=== PATIENT | female | born 1955 | race Caucasian/White ===

== ENCOUNTER 2018-10-12 12:16 | Inpatient (IN) | payer MEDICAID, OTHER ==
[2018-10-12 12:35] LABS: WHITE BLOOD COUNT 5.9 10^3/ul (4.8-10.8)
[2018-10-12 12:35] LABS: ABNORMAL IP MESSAGE 1; ADD MAN DIFF? NO; BASOPHILS % 0.5 % (0.0-2.0); HEMATOCRIT 21.7 % (37.0-47.0); LYMPHOCYTES # 0.9 10^3/ul (0.8-2.9); LYMPHOCYTES % 15.4 % (15.0-51.0); MEAN CORPUSCULAR HEMOGLOBIN 23.4 pg (29.0-33.0); MEAN CORPUSCULAR HGB CONC 28.1 g/dl (32.0-37.0); MEAN CORPUSCULAR VOLUME 83.1 fl (82.0-101.0); MEAN PLATELET VOLUME 8.5 fl (7.4-10.4); MONOCYTE # 0.5 10^3/ul (0.3-0.9); MONOCYTES % 8.9 % (0.0-11.0); NEUTROPHIL # 4.4 10^3/ul (1.6-7.5); PLATELET COUNT 203 10^3/UL (140-415); RED BLOOD COUNT 2.61 10^6/ul (4.20-5.40); RED CELL DISTRIBUTION WIDTH 22.2 % (11.5-14.5)
[2018-10-12 12:36] LABS: POSITIVE DIFF @See below
[2018-10-12 12:38] LABS: HEMOGLOBIN 6.1 g/dl (12.0-16.0)
[2018-10-12 12:39] LABS: PATH REVIEW? NO
[2018-10-12 12:52] LABS: ALANINE AMINOTRANSFERASE 13 IU/L (13-69); ALBUMIN 2.7 g/dl (3.3-4.9); ALBUMIN/GLOBULIN RATIO 0.69; ALKALINE PHOSPHATASE 139 IU/L (42-121); ANION GAP 10 (5-13); ASPARTATE AMINO TRANSFERASE 22 IU/L (15-46); BILIRUBIN,INDIRECT 0.7 mg/dl (0-1.1); BILIRUBIN,TOTAL 0.7 mg/dl (0.2-1.3); BLOOD UREA NITROGEN 19 mg/dl (7-20); CALCIUM 8.2 mg/dl (8.4-10.2); CARBON DIOXIDE 23 mmol/L (21-31); CHLORIDE 104 mmol/L (97-110); CREATININE 0.76 mg/dl (0.44-1.00); Estimated GFR > 60 mL/min (>60); GLUCOSE 161 mg/dl (70-220); POTASSIUM 3.4 mmol/L (3.5-5.1); SODIUM 137 mmol/L (135-144); TOTAL PROTEIN 6.6 g/dl (6.1-8.1)
[2018-10-12 12:53] LABS: ETHANOL < 10.0 mg/dl (0-0)
[2018-10-12 12:53] LABS: INR 1.26; PROTIME 15.9 Sec (11.9-14.9); PT RATIO 1.2
[2018-10-12 12:54] LABS: PARTIAL THROMBOPLASTIN TIME 29.1 Sec (23.0-35.0)
[2018-10-12 13:01] LABS: B-TYPE NATRIURETIC PEPTIDE 415 PG/ML (0-125)
[2018-10-12 13:05] LABS: TROPONIN-I < 0.012 ng/ml (0.000-0.120)
[2018-10-12 13:43] LABS: AMPHETAMINE/METHAMPHETAMINE Negative (NEGATIVE); BARBITURATES Negative (NEGATIVE); BENZODIAZEPINES Negative (NEGATIVE); CANNABINOIDS Negative (NEGATIVE); COCAINE Negative (NEGATIVE); OPIATES Negative (NEGATIVE)
[2018-10-12] MEDS ORDERED: NACL 0.9% 3 ML SYG IV (14:00)
[2018-10-12] MEDS ORDERED: hydrALAzine 20 MG INJ IV (14:00)
[2018-10-12] MEDS ORDERED: NITROGLYCERIN (SL) 0.4 MG TAB SL (14:00)
[2018-10-12] MEDS ORDERED: ALBUTEROL/IPRATROPIUM (NEB) 3 ML AMP HHN (14:00)
[2018-10-12 14:37] LABS: INR 1.27; PT RATIO 1.3
[2018-10-12 14:38] LABS: PARTIAL THROMBOPLASTIN TIME 28.1 Sec (23.0-35.0)
[2018-10-12 14:54] LABS: FREE T4 (FREE THYROXINE) 2.25 ng/dl (0.78-2.44)
[2018-10-12] MEDS: ONDANSETRON 4 MG INJ IV (14:55)
[2018-10-12] MEDS: morphine 2 MG INJ IV ×2 (14:55→20:07)
[2018-10-12 15:02] LABS: CREATINE KINASE 59 IU/L (23-200)
[2018-10-12 15:15] LABS: CK INDEX 1.3; CK-MB 0.79 ng/ml (0.0-2.4); TROPONIN-I < 0.012 ng/ml (0.000-0.120)
[2018-10-12] MEDS ORDERED: GLUCOSE GEL 15 GRAM TUBE PO ×2 (17:00)
[2018-10-12] MEDS ORDERED: GLUCOSE GEL 15 GRAM TUBE BUCCAL (17:00)
[2018-10-12] MEDS ORDERED: GLUCAGON 1 MG INJ IM (17:00)
[2018-10-12] MEDS ORDERED: DEXTROSE 50% 50 ML SYRINGE IV ×2 (17:00)
[2018-10-12 17:08] LABS: IMMEDIATE SPIN CROSSMATCH 1 2
[2018-10-12] MEDS: INSULIN ASPART [NOVOLOG] 3 ML PEN SC ×2 (17:30→20:59)
[2018-10-12] MEDS: HYDROCODONE/APAP (5/325) TAB PO (18:10)
[2018-10-12] MEDS: FAMOTIDINE 20 MG INJ IV ×2 (18:26→23:12)
[2018-10-12] MEDS: SOD CHLORIDE 0.45% 1,000 ML IV (20:06)
[2018-10-12] MEDS: POTASSIUM CHLORIDE (SR) 20 MEQ TAB PO (20:07)
[2018-10-12 20:38] LABS: CREATINE KINASE 68 IU/L (23-200)
[2018-10-12 20:51] LABS: CK INDEX 1.2; CK-MB 0.84 ng/ml (0.0-2.4); TROPONIN-I < 0.012 ng/ml (0.000-0.120)
[2018-10-12] MEDS: SOD CHLORIDE 0.9% 100 ML (21:18)
[2018-10-12] MEDS: IOHEXOL 100 ML (21:18)
[2018-10-13 00:54] LABS: ADD MAN DIFF? NO
[2018-10-13 00:57] LABS: HEMATOCRIT 28.1 % (37.0-47.0); HEMOGLOBIN 8.4 g/dl (12.0-16.0); LYMPHOCYTES # 0.9 10^3/ul (0.8-2.9); LYMPHOCYTES % 20.8 % (15.0-51.0); MEAN CORPUSCULAR HGB CONC 29.9 g/dl (32.0-37.0); MEAN CORPUSCULAR VOLUME 83.6 fl (82.0-101.0); MEAN PLATELET VOLUME 8.5 fl (7.4-10.4); MONOCYTE # 0.4 10^3/ul (0.3-0.9); MONOCYTES % 8.6 % (0.0-11.0); NEUTROPHIL # 2.8 10^3/ul (1.6-7.5); NEUTROPHILS % 68.4 % (39.0-77.0); PLATELET COUNT 152 10^3/UL (140-415); RED BLOOD COUNT 3.36 10^6/ul (4.20-5.40); RED CELL DISTRIBUTION WIDTH 19.4 % (11.5-14.5)
[2018-10-13 00:57] LABS: WHITE BLOOD COUNT 4.1 10^3/ul (4.8-10.8)
[2018-10-13] MEDS: INSULIN ASPART [NOVOLOG] 3 ML PEN SC ×5 (01:00→20:03)
[2018-10-13 01:20] LABS: INR 1.27; PT RATIO 1.3
[2018-10-13 01:21] LABS: PARTIAL THROMBOPLASTIN TIME 34.1 Sec (23.0-35.0)
[2018-10-13] MEDS: ACCU-CHEK XX (01:44)
[2018-10-13] MEDS: HYDROCODONE/APAP (5/325) TAB PO ×2 (02:09→10:49)
[2018-10-13] MEDS: HEPARIN 1000 UNITS/ML 10 ML INJ IV (02:27)
[2018-10-13] MEDS: HEPARIN 25000 UNITS/250 ML 250 ML IV ×2 (02:27→14:46)
[2018-10-13] MEDS: SOD CHLORIDE 0.45% 1,000 ML IV ×2 (03:16→10:51)
[2018-10-13] MEDS: morphine 2 MG INJ IV ×6 (03:53→23:38)
[2018-10-13 06:08] LABS: ADD MAN DIFF? NO
[2018-10-13 06:21] LABS: WHITE BLOOD COUNT 4.7 10^3/ul (4.8-10.8)
[2018-10-13 06:21] LABS: BASOPHILS % 0.6 % (0.0-2.0); EOSINOPHILS # 0.1 10^3/ul (0.0-0.5); EOSINOPHILS % 2.6 % (0.0-7.0); HEMATOCRIT 28.1 % (37.0-47.0); HEMOGLOBIN 8.3 g/dl (12.0-16.0); LYMPHOCYTES % 21.5 % (15.0-51.0); MEAN CORPUSCULAR HEMOGLOBIN 24.7 pg (29.0-33.0); MEAN CORPUSCULAR HGB CONC 29.5 g/dl (32.0-37.0); MEAN CORPUSCULAR VOLUME 83.6 fl (82.0-101.0); MEAN PLATELET VOLUME 8.4 fl (7.4-10.4); MONOCYTE # 0.4 10^3/ul (0.3-0.9); MONOCYTES % 8.6 % (0.0-11.0); NEUTROPHIL # 3.1 10^3/ul (1.6-7.5); NEUTROPHILS % 66.5 % (39.0-77.0); PLATELET COUNT 170 10^3/UL (140-415); RED BLOOD COUNT 3.36 10^6/ul (4.20-5.40); RED CELL DISTRIBUTION WIDTH 19.6 % (11.5-14.5)
[2018-10-13 06:29] LABS: INR 1.64; PT RATIO 1.5
[2018-10-13 06:42] LABS: CHOL/HDL RATIO 6.2 RATIO; HDL CHOLESTEROL 24 mg/dl (35-98); LDL CHOLESTEROL,CALCULATED 107 mg/dl; TRIGLYCERIDES 92 mg/dl (0-149)
[2018-10-13 06:42] LABS: CHOLESTEROL 149 mg/dl (100-200)
[2018-10-13 06:59] LABS: ANION GAP 7 (5-13); BLOOD UREA NITROGEN 17 mg/dl (7-20); CALCIUM 8.1 mg/dl (8.4-10.2); CARBON DIOXIDE 25 mmol/L (21-31); CHLORIDE 104 mmol/L (97-110); Estimated GFR > 60 mL/min (>60); GLUCOSE 108 mg/dl (70-220); POTASSIUM 3.7 mmol/L (3.5-5.1); SODIUM 136 mmol/L (135-144)
[2018-10-13 07:05] LABS: HEMOGLOBIN A1C 5.6 % (0-5.9)
[2018-10-13 07:29] LABS: PARTIAL THROMBOPLASTIN TIME > 180.0 Sec (23.0-35.0)
[2018-10-13 07:47] LABS: PROTIME 19.5 Sec (11.9-14.9)
[2018-10-13] MEDS: FLUOXETINE 20 MG CAP PO (08:30)
[2018-10-13] MEDS: FAMOTIDINE 20 MG INJ IV ×2 (08:30→20:04)
[2018-10-13] MEDS: HYDROCHLOROTHIAZIDE 25 MG TAB PO (08:30)
[2018-10-13] MEDS: LISINOPRIL 20 MG TAB PO (08:31)
[2018-10-13 11:23] LABS: ADD MAN DIFF? NO
[2018-10-13 11:25] LABS: WHITE BLOOD COUNT 4.5 10^3/ul (4.8-10.8)
[2018-10-13 11:25] LABS: BASOPHILS % 0.7 % (0.0-2.0); EOSINOPHILS # 0.1 10^3/ul (0.0-0.5); EOSINOPHILS % 2.7 % (0.0-7.0); HEMOGLOBIN 8.3 g/dl (12.0-16.0); LYMPHOCYTES # 1.2 10^3/ul (0.8-2.9); LYMPHOCYTES % 27.2 % (15.0-51.0); MEAN CORPUSCULAR HGB CONC 29.6 g/dl (32.0-37.0); MEAN CORPUSCULAR VOLUME 84.3 fl (82.0-101.0); MEAN PLATELET VOLUME 8.4 fl (7.4-10.4); MONOCYTE # 0.4 10^3/ul (0.3-0.9); MONOCYTES % 9.2 % (0.0-11.0); NEUTROPHIL # 2.7 10^3/ul (1.6-7.5); PLATELET COUNT 165 10^3/UL (140-415); RED BLOOD COUNT 3.32 10^6/ul (4.20-5.40); RED CELL DISTRIBUTION WIDTH 19.7 % (11.5-14.5)
[2018-10-13] MEDS: BISACODYL (EC) 5 MG TAB PO (12:05)
[2018-10-13] MEDS: FUROSEMIDE 40 MG TAB PO (12:05)
[2018-10-13 12:36] LABS: PARTIAL THROMBOPLASTIN TIME > 180.0 Sec (23.0-35.0)
[2018-10-13 13:16] LABS: ADD MAN DIFF? NO
[2018-10-13 13:17] LABS: BASOPHIL # 0.1 10^3/ul (0.0-0.1); BASOPHILS % 1.1 % (0.0-2.0); EOSINOPHILS # 0.1 10^3/ul (0.0-0.5); EOSINOPHILS % 1.8 % (0.0-7.0); HEMATOCRIT 28.8 % (37.0-47.0); HEMOGLOBIN 8.6 g/dl (12.0-16.0); LYMPHOCYTES # 1.1 10^3/ul (0.8-2.9); LYMPHOCYTES % 24.8 % (15.0-51.0); MEAN CORPUSCULAR HEMOGLOBIN 25.1 pg (29.0-33.0); MEAN CORPUSCULAR HGB CONC 29.9 g/dl (32.0-37.0); MEAN CORPUSCULAR VOLUME 84.2 fl (82.0-101.0); MEAN PLATELET VOLUME 8.4 fl (7.4-10.4); MONOCYTE # 0.4 10^3/ul (0.3-0.9); MONOCYTES % 9.5 % (0.0-11.0); NEUTROPHIL # 2.8 10^3/ul (1.6-7.5); NEUTROPHILS % 62.6 % (39.0-77.0); PLATELET COUNT 174 10^3/UL (140-415); RED BLOOD COUNT 3.42 10^6/ul (4.20-5.40); RED CELL DISTRIBUTION WIDTH 19.8 % (11.5-14.5)
[2018-10-13 13:17] LABS: WHITE BLOOD COUNT 4.5 10^3/ul (4.8-10.8)
[2018-10-13 13:22] LABS: HEPATITIS B CORE ANTIBODY NEGATIVE (NEGATIVE)
[2018-10-13 13:23] LABS: HEPATITIS C VIRAL ANTIBODY NEGATIVE (NEGATIVE)
[2018-10-13 17:29] LABS: HEPATITIS B SURFACE ANTIGEN NEGATIVE (NEGATIVE)
[2018-10-13] MEDS ORDERED: MAGNESIUM CITRATE 300 ML BTL PO (17:30)
[2018-10-13 17:44] LABS: HEPATITIS B SURFACE ANTIBODY NEGATIVE (NEGATIVE)
[2018-10-13] MEDS ORDERED: POLYETHYLENE GLYCOL 3350 119 GM POWDER PO (18:30)
[2018-10-13] MEDS: SPIRONOLACTONE 25 MG TAB PO (18:43)
[2018-10-13] MEDS: DOCUSATE SODIUM 100 MG CAP PO (18:43)
[2018-10-13] MEDS: HYDROCODONE/APAP (7.5/325) TAB PO (18:44)
[2018-10-13] MEDS: SOD CHLORIDE 0.9% 1,000 ML IV (20:36)
[2018-10-13] MEDS ORDERED: Insulin NOVOLOG SS MILD Algorithm (SS with meals and bedtime) SC (21:00)
[2018-10-13] MEDS ORDERED: INSULIN ASPART [NOVOLOG] 3 ML PEN SC (21:00)
[2018-10-13 22:36] LABS: ADD MAN DIFF? NO
[2018-10-13 22:40] LABS: WHITE BLOOD COUNT 5.4 10^3/ul (4.8-10.8)
[2018-10-13 22:40] LABS: ABNORMAL IP MESSAGE 1; BASOPHIL # 0.1 10^3/ul (0.0-0.1); BASOPHILS % 1.1 % (0.0-2.0); EOSINOPHILS # 0.1 10^3/ul (0.0-0.5); EOSINOPHILS % 1.7 % (0.0-7.0); HEMATOCRIT 28.9 % (37.0-47.0); HEMOGLOBIN 8.3 g/dl (12.0-16.0); LYMPHOCYTES # 1.3 10^3/ul (0.8-2.9); LYMPHOCYTES % 24.3 % (15.0-51.0); MEAN CORPUSCULAR HEMOGLOBIN 24.3 pg (29.0-33.0); MEAN CORPUSCULAR HGB CONC 28.7 g/dl (32.0-37.0); MEAN CORPUSCULAR VOLUME 84.8 fl (82.0-101.0); MEAN PLATELET VOLUME 8.5 fl (7.4-10.4); MONOCYTE # 0.5 10^3/ul (0.3-0.9); MONOCYTES % 8.7 % (0.0-11.0); NEUTROPHIL # 3.4 10^3/ul (1.6-7.5); PLATELET COUNT 203 10^3/UL (140-415); RED BLOOD COUNT 3.41 10^6/ul (4.20-5.40); RED CELL DISTRIBUTION WIDTH 19.9 % (11.5-14.5)
[2018-10-13 22:42] LABS: POSITIVE DIFF @See below
[2018-10-13 23:22] LABS: PARTIAL THROMBOPLASTIN TIME > 180.0 Sec (23.0-35.0)
[2018-10-13] MEDS: ONDANSETRON 4 MG INJ IV (23:46)
[2018-10-14] MEDS: HYDROCODONE/APAP (7.5/325) TAB PO (00:41)
[2018-10-14] MEDS: LORAZEPAM 2 MG INJ IV (01:03)
[2018-10-14] MEDS: INSULIN ASPART [NOVOLOG] 3 ML PEN SC ×6 (01:12→20:20)
[2018-10-14] MEDS: ACCU-CHEK XX (01:36)
[2018-10-14 01:37] LABS: PARTIAL THROMBOPLASTIN TIME > 180.0 Sec (23.0-35.0)
[2018-10-14 03:00] LABS: ADD MAN DIFF? NO
[2018-10-14 03:04] LABS: BASOPHIL # 0.1 10^3/ul (0.0-0.1); EOSINOPHILS # 0.1 10^3/ul (0.0-0.5); EOSINOPHILS % 1.8 % (0.0-7.0); HEMATOCRIT 26.1 % (37.0-47.0); HEMOGLOBIN 7.7 g/dl (12.0-16.0); LYMPHOCYTES # 1.2 10^3/ul (0.8-2.9); LYMPHOCYTES % 24.6 % (15.0-51.0); MEAN CORPUSCULAR HEMOGLOBIN 24.8 pg (29.0-33.0); MEAN CORPUSCULAR HGB CONC 29.5 g/dl (32.0-37.0); MEAN CORPUSCULAR VOLUME 83.9 fl (82.0-101.0); MEAN PLATELET VOLUME 8.6 fl (7.4-10.4); MONOCYTE # 0.6 10^3/ul (0.3-0.9); MONOCYTES % 11.7 % (0.0-11.0); NEUTROPHILS % 60.7 % (39.0-77.0); PLATELET COUNT 186 10^3/UL (140-415); RED BLOOD COUNT 3.11 10^6/ul (4.20-5.40); RED CELL DISTRIBUTION WIDTH 19.8 % (11.5-14.5)
[2018-10-14 03:41] LABS: ANION GAP 11 (5-13); BLOOD UREA NITROGEN 19 mg/dl (7-20); CALCIUM 7.7 mg/dl (8.4-10.2); CARBON DIOXIDE 23 mmol/L (21-31); CHLORIDE 103 mmol/L (97-110); CREATININE 1.08 mg/dl (0.44-1.00); Estimated GFR 51 mL/min (>60); GLUCOSE 136 mg/dl (70-220); POTASSIUM 3.5 mmol/L (3.5-5.1); SODIUM 137 mmol/L (135-144)
[2018-10-14] MEDS: SPIRONOLACTONE 25 MG TAB PO ×2 (05:23→18:00)
[2018-10-14] MEDS ORDERED: POLYETHYLENE GLYCOL 3350 119 GM POWDER PO (06:00)
[2018-10-14] MEDS ORDERED: BISACODYL (EC) 5 MG TAB PO (08:00)
[2018-10-14] MEDS: FUROSEMIDE 40 MG TAB PO (08:42)
[2018-10-14] MEDS: FLUOXETINE 20 MG CAP PO (08:43)
[2018-10-14] MEDS: FAMOTIDINE 20 MG INJ IV ×2 (08:48→20:20)
[2018-10-14 09:05] LABS: PARTIAL THROMBOPLASTIN TIME 42.1 Sec (23.0-35.0)
[2018-10-14 11:57] LABS: ANA SCREEN NEGATIVE (NEGATIVE)
[2018-10-14 13:31] LABS: MITOCHONDRIAL TB NEGATIVE (NEGATIVE); SMOOTH MUSCLE AB SCREEN NEGATIVE (NEGATIVE)
[2018-10-14] MEDS: HEPARIN 1000 UNITS/ML 10 ML INJ IV (15:31)
[2018-10-14] MEDS: HEPARIN 25000 UNITS/250 ML 250 ML IV (15:35)
[2018-10-14] MEDS: morphine 2 MG INJ IV (22:09)
[2018-10-14 22:36] LABS: PARTIAL THROMBOPLASTIN TIME > 180.0 Sec (23.0-35.0)
[2018-10-15] MEDS: ACCU-CHEK XX (02:00)
[2018-10-15 03:54] LABS: PARTIAL THROMBOPLASTIN TIME 52.8 Sec (23.0-35.0)
[2018-10-15] MEDS: SPIRONOLACTONE 25 MG TAB PO (05:40)
[2018-10-15] MEDS: FUROSEMIDE 20 MG TAB PO (05:41)
[2018-10-15 05:57] LABS: ADD MAN DIFF? NO; BASOPHIL # 0.1 10^3/ul (0.0-0.1); BASOPHILS % 1.2 % (0.0-2.0); EOSINOPHILS # 0.1 10^3/ul (0.0-0.5); HEMATOCRIT 28.5 % (37.0-47.0); HEMOGLOBIN 8.3 g/dl (12.0-16.0); LYMPHOCYTES # 1.3 10^3/ul (0.8-2.9); LYMPHOCYTES % 25.6 % (15.0-51.0); MEAN CORPUSCULAR HEMOGLOBIN 24.6 pg (29.0-33.0); MEAN CORPUSCULAR HGB CONC 29.1 g/dl (32.0-37.0); MEAN CORPUSCULAR VOLUME 84.3 fl (82.0-101.0); MEAN PLATELET VOLUME 8.4 fl (7.4-10.4); MONOCYTE # 0.6 10^3/ul (0.3-0.9); MONOCYTES % 11.1 % (0.0-11.0); NEUTROPHILS % 59.9 % (39.0-77.0); PLATELET COUNT 215 10^3/UL (140-415); RED BLOOD COUNT 3.38 10^6/ul (4.20-5.40); RED CELL DISTRIBUTION WIDTH 20.5 % (11.5-14.5)
[2018-10-15 06:48] LABS: ANION GAP 8 (5-13); BLOOD UREA NITROGEN 22 mg/dl (7-20); CALCIUM 8.1 mg/dl (8.4-10.2); CARBON DIOXIDE 25 mmol/L (21-31); CHLORIDE 101 mmol/L (97-110); CREATININE 1.66 mg/dl (0.44-1.00); Estimated GFR 31 mL/min (>60); GLUCOSE 136 mg/dl (70-220); SODIUM 134 mmol/L (135-144)
[2018-10-15] MEDS: INSULIN ASPART [NOVOLOG] 3 ML PEN SC ×4 (08:12→22:40)
[2018-10-15] MEDS: FAMOTIDINE 20 MG INJ IV ×2 (09:02→22:17)
[2018-10-15] MEDS: FLUOXETINE 20 MG CAP PO (09:03)
[2018-10-15 09:08] LABS: PARTIAL THROMBOPLASTIN TIME 130.5 Sec (23.0-35.0)
[2018-10-15] MEDS: LIDOCAINE 1% (MPF) 5 ML VIAL ×2 (14:10→14:32)
[2018-10-15 15:41] LABS: FLD RBC 0 /uL; FLD WBC 25 /cmm
[2018-10-15 15:54] LABS: FLUID LD 217 U/L; FLUID TYPE PARACENTESIS FLUID
[2018-10-15 15:55] LABS: FLUID AMYLASE < 30 U/L; FLUID GLUCOSE 127 mg/dl; FLUID TOTAL PROTEIN < 2.0 g/dl; FLUID TYPE PARACENTESIS FLUID
[2018-10-15 15:58] LABS: PARTIAL THROMBOPLASTIN TIME 127.4 Sec (23.0-35.0)
[2018-10-15] MEDS: HEPARIN 25000 UNITS/250 ML 250 ML IV (16:06)
[2018-10-15 16:41] LABS: FLD CLARITY CLEAR
[2018-10-15 16:41] LABS: FLD TYPE PARACENTHESIS
[2018-10-15 16:42] LABS: FLD COLOR YELLOW
[2018-10-15] MEDS: MAGNESIUM HYDROXIDE 30ML CUP PO (18:08)
[2018-10-15] MEDS: DOCUSATE SODIUM 100 MG CAP PO (22:17)
[2018-10-15 22:25] LABS: PARTIAL THROMBOPLASTIN TIME 58.7 Sec (23.0-35.0)
[2018-10-15] MEDS: ACETAMINOPHEN 325 MG TAB PO (22:34)
[2018-10-16] MEDS: ACCU-CHEK XX (01:59)
[2018-10-16] MEDS: ACETAMINOPHEN 325 MG TAB PO (05:31)
[2018-10-16 05:42] LABS: ADD MAN DIFF? NO
[2018-10-16 05:50] LABS: BASOPHILS % 0.6 % (0.0-2.0); EOSINOPHILS # 0.1 10^3/ul (0.0-0.5); EOSINOPHILS % 2.4 % (0.0-7.0); HEMATOCRIT 26.4 % (37.0-47.0); HEMOGLOBIN 7.9 g/dl (12.0-16.0); LYMPHOCYTES # 1.1 10^3/ul (0.8-2.9); LYMPHOCYTES % 32.6 % (15.0-51.0); MEAN CORPUSCULAR HEMOGLOBIN 24.8 pg (29.0-33.0); MEAN CORPUSCULAR HGB CONC 29.9 g/dl (32.0-37.0); MEAN PLATELET VOLUME 8.3 fl (7.4-10.4); MONOCYTE # 0.4 10^3/ul (0.3-0.9); MONOCYTES % 12.2 % (0.0-11.0); NEUTROPHIL # 1.8 10^3/ul (1.6-7.5); NEUTROPHILS % 52.2 % (39.0-77.0); PLATELET COUNT 152 10^3/UL (140-415); RED BLOOD COUNT 3.18 10^6/ul (4.20-5.40); RED CELL DISTRIBUTION WIDTH 20.4 % (11.5-14.5)
[2018-10-16 05:50] LABS: WHITE BLOOD COUNT 3.4 10^3/ul (4.8-10.8)
[2018-10-16 06:23] LABS: ANION GAP 4 (5-13); BLOOD UREA NITROGEN 22 mg/dl (7-20); CALCIUM 7.9 mg/dl (8.4-10.2); CARBON DIOXIDE 26 mmol/L (21-31); CHLORIDE 104 mmol/L (97-110); CREATININE 1.53 mg/dl (0.44-1.00); Estimated GFR 34 mL/min (>60); GLUCOSE 113 mg/dl (70-220); SODIUM 134 mmol/L (135-144)
[2018-10-16 06:42] LABS: PARTIAL THROMBOPLASTIN TIME 107.8 Sec (23.0-35.0)
[2018-10-16] MEDS: HEPARIN 25000 UNITS/250 ML 250 ML IV ×3 (07:20→15:34)
[2018-10-16] MEDS: INSULIN ASPART [NOVOLOG] 3 ML PEN SC ×4 (08:00→20:37)
[2018-10-16] MEDS: FLUOXETINE 20 MG CAP PO (09:20)
[2018-10-16] MEDS: FAMOTIDINE 20 MG INJ IV ×2 (09:21→20:37)
[2018-10-16] MEDS: HYDROCODONE/APAP (7.5/325) TAB PO (09:26)
[2018-10-16 14:49] LABS: PARTIAL THROMBOPLASTIN TIME 30.5 Sec (23.0-35.0)
[2018-10-16] MEDS: HEPARIN 1000 UNITS/ML 10 ML INJ IV (15:29)
[2018-10-16 23:13] LABS: PARTIAL THROMBOPLASTIN TIME > 180.0 Sec (23.0-35.0)
[2018-10-17] MEDS: ACCU-CHEK XX (02:00)
[2018-10-17 03:54] LABS: ADD MAN DIFF? NO
[2018-10-17 04:23] LABS: WHITE BLOOD COUNT 3.6 10^3/ul (4.8-10.8)
[2018-10-17 04:23] LABS: BASOPHILS % 0.8 % (0.0-2.0); EOSINOPHILS # 0.1 10^3/ul (0.0-0.5); EOSINOPHILS % 2.3 % (0.0-7.0); HEMATOCRIT 25.4 % (37.0-47.0); HEMOGLOBIN 7.8 g/dl (12.0-16.0); LYMPHOCYTES # 0.9 10^3/ul (0.8-2.9); LYMPHOCYTES % 24.2 % (15.0-51.0); MEAN CORPUSCULAR HEMOGLOBIN 25.2 pg (29.0-33.0); MEAN CORPUSCULAR HGB CONC 30.7 g/dl (32.0-37.0); MEAN CORPUSCULAR VOLUME 82.2 fl (82.0-101.0); MEAN PLATELET VOLUME 8.7 fl (7.4-10.4); MONOCYTE # 0.4 10^3/ul (0.3-0.9); MONOCYTES % 12.1 % (0.0-11.0); NEUTROPHIL # 2.1 10^3/ul (1.6-7.5); NEUTROPHILS % 60.3 % (39.0-77.0); PLATELET COUNT 163 10^3/UL (140-415); RED BLOOD COUNT 3.09 10^6/ul (4.20-5.40); RED CELL DISTRIBUTION WIDTH 20.6 % (11.5-14.5)
[2018-10-17] MEDS: ONDANSETRON 4 MG INJ IV (04:32)
[2018-10-17 04:34] LABS: PARTIAL THROMBOPLASTIN TIME 85.3 Sec (23.0-35.0)
[2018-10-17] MEDS: HEPARIN 25000 UNITS/250 ML 250 ML IV (04:45)
[2018-10-17 04:56] LABS: ANION GAP 7 (5-13); BLOOD UREA NITROGEN 20 mg/dl (7-20); CARBON DIOXIDE 26 mmol/L (21-31); CHLORIDE 103 mmol/L (97-110); CREATININE 1.23 mg/dl (0.44-1.00); Estimated GFR 44 mL/min (>60); GLUCOSE 117 mg/dl (70-220); POTASSIUM 4.1 mmol/L (3.5-5.1); SODIUM 136 mmol/L (135-144)
[2018-10-17] MEDS: HYDROCODONE/APAP (7.5/325) TAB PO ×2 (06:19→19:59)
[2018-10-17] MEDS: INSULIN ASPART [NOVOLOG] 3 ML PEN SC ×4 (07:53→20:09)
[2018-10-17] MEDS: FAMOTIDINE 20 MG INJ IV ×2 (08:47→19:59)
[2018-10-17] MEDS: FLUOXETINE 20 MG CAP PO (08:51)
[2018-10-17 12:48] LABS: PARTIAL THROMBOPLASTIN TIME 77.7 Sec (23.0-35.0)
[2018-10-18] MEDS: HYDROCODONE/APAP (7.5/325) TAB PO (01:29)
[2018-10-18] MEDS: ACCU-CHEK XX (01:31)
[2018-10-18] MEDS: morphine 2 MG INJ IV ×4 (02:21→16:19)
[2018-10-18 05:19] LABS: ADD MAN DIFF? NO
[2018-10-18 05:26] LABS: WHITE BLOOD COUNT 4.3 10^3/ul (4.8-10.8)
[2018-10-18 05:26] LABS: BASOPHILS % 0.7 % (0.0-2.0); EOSINOPHILS # 0.1 10^3/ul (0.0-0.5); EOSINOPHILS % 1.9 % (0.0-7.0); HEMATOCRIT 25.6 % (37.0-47.0); HEMOGLOBIN 7.7 g/dl (12.0-16.0); LYMPHOCYTES # 1.1 10^3/ul (0.8-2.9); LYMPHOCYTES % 25.2 % (15.0-51.0); MEAN CORPUSCULAR HEMOGLOBIN 24.8 pg (29.0-33.0); MEAN CORPUSCULAR HGB CONC 30.1 g/dl (32.0-37.0); MEAN CORPUSCULAR VOLUME 82.6 fl (82.0-101.0); MEAN PLATELET VOLUME 8.2 fl (7.4-10.4); MONOCYTE # 0.5 10^3/ul (0.3-0.9); MONOCYTES % 11.4 % (0.0-11.0); NEUTROPHIL # 2.6 10^3/ul (1.6-7.5); NEUTROPHILS % 60.6 % (39.0-77.0); PLATELET COUNT 161 10^3/UL (140-415); RED CELL DISTRIBUTION WIDTH 21.2 % (11.5-14.5)
[2018-10-18 05:57] LABS: ANION GAP 6 (5-13); BLOOD UREA NITROGEN 20 mg/dl (7-20); CALCIUM 7.9 mg/dl (8.4-10.2); CARBON DIOXIDE 26 mmol/L (21-31); CHLORIDE 103 mmol/L (97-110); CREATININE 0.97 mg/dl (0.44-1.00); Estimated GFR 58 mL/min (>60); GLUCOSE 136 mg/dl (70-220); POTASSIUM 3.7 mmol/L (3.5-5.1); SODIUM 135 mmol/L (135-144)
[2018-10-18 06:07] LABS: INR 1.17; PT RATIO 1.2
[2018-10-18 07:40] LABS: PARTIAL THROMBOPLASTIN TIME 116.4 Sec (23.0-35.0)
[2018-10-18] MEDS: INSULIN ASPART [NOVOLOG] 3 ML PEN SC ×4 (07:46→22:38)
[2018-10-18] MEDS: FLUOXETINE 20 MG CAP PO (08:08)
[2018-10-18] MEDS: FAMOTIDINE 20 MG INJ IV ×2 (08:08→22:17)
[2018-10-18] MEDS: HEPARIN 25000 UNITS/250 ML 250 ML IV ×3 (10:30→18:29)
[2018-10-18 16:48] LABS: PARTIAL THROMBOPLASTIN TIME 45.8 Sec (23.0-35.0)
[2018-10-18] MEDS: HEPARIN 1000 UNITS/ML 10 ML INJ IV (18:29)
[2018-10-19 01:32] LABS: PARTIAL THROMBOPLASTIN TIME > 180.0 Sec (23.0-35.0)
[2018-10-19] MEDS: ACCU-CHEK XX (02:48)
[2018-10-19] MEDS: morphine 2 MG INJ IV ×4 (03:50→22:34)
[2018-10-19 04:25] LABS: PARTIAL THROMBOPLASTIN TIME > 180.0 Sec (23.0-35.0)
[2018-10-19 06:37] LABS: ADD MAN DIFF? NO
[2018-10-19 06:44] LABS: WHITE BLOOD COUNT 4.1 10^3/ul (4.8-10.8)
[2018-10-19 06:44] LABS: EOSINOPHILS # 0.1 10^3/ul (0.0-0.5); EOSINOPHILS % 2.9 % (0.0-7.0); HEMATOCRIT 25.4 % (37.0-47.0); HEMOGLOBIN 7.7 g/dl (12.0-16.0); LYMPHOCYTES # 1.2 10^3/ul (0.8-2.9); LYMPHOCYTES % 29.4 % (15.0-51.0); MEAN CORPUSCULAR HEMOGLOBIN 25.2 pg (29.0-33.0); MEAN CORPUSCULAR HGB CONC 30.3 g/dl (32.0-37.0); MEAN CORPUSCULAR VOLUME 83.3 fl (82.0-101.0); MEAN PLATELET VOLUME 8.3 fl (7.4-10.4); MONOCYTE # 0.4 10^3/ul (0.3-0.9); MONOCYTES % 10.2 % (0.0-11.0); NEUTROPHIL # 2.3 10^3/ul (1.6-7.5); NEUTROPHILS % 56.3 % (39.0-77.0); PLATELET COUNT 153 10^3/UL (140-415); RED BLOOD COUNT 3.05 10^6/ul (4.20-5.40); RED CELL DISTRIBUTION WIDTH 21.5 % (11.5-14.5)
[2018-10-19 07:10] LABS: ANION GAP 4 (5-13); BLOOD UREA NITROGEN 18 mg/dl (7-20); CALCIUM 7.8 mg/dl (8.4-10.2); CARBON DIOXIDE 27 mmol/L (21-31); CHLORIDE 104 mmol/L (97-110); Estimated GFR > 60 mL/min (>60); GLUCOSE 120 mg/dl (70-220); SODIUM 135 mmol/L (135-144)
[2018-10-19 07:24] LABS: POTASSIUM 4.3 mmol/L (3.5-5.1)
[2018-10-19 07:32] LABS: PARTIAL THROMBOPLASTIN TIME 152.5 Sec (23.0-35.0)
[2018-10-19] MEDS: INSULIN ASPART [NOVOLOG] 3 ML PEN SC ×4 (07:48→21:49)
[2018-10-19] MEDS: FLUOXETINE 20 MG CAP PO (08:46)
[2018-10-19] MEDS: FAMOTIDINE 20 MG INJ IV ×2 (08:46→21:30)
[2018-10-19 09:22] LABS: PARTIAL THROMBOPLASTIN TIME 56.4 Sec (23.0-35.0)
[2018-10-19] MEDS: HEPARIN 25000 UNITS/250 ML 250 ML IV (10:13)
[2018-10-19] MEDS: BISACODYL (EC) 5 MG TAB PO (15:58)
[2018-10-19 16:17] LABS: PARTIAL THROMBOPLASTIN TIME 76.2 Sec (23.0-35.0)
[2018-10-19] MEDS: MAGNESIUM CITRATE 300 ML BTL PO (18:23)
[2018-10-19] MEDS: POLYETHYLENE GLYCOL 3350 119 GM POWDER PO (19:10)
[2018-10-19 20:41] LABS: PARTIAL THROMBOPLASTIN TIME 70.6 Sec (23.0-35.0)
[2018-10-20] MEDS: ACCU-CHEK XX (02:08)
[2018-10-20 03:09] LABS: PARTIAL THROMBOPLASTIN TIME 74.2 Sec (23.0-35.0)
[2018-10-20] MEDS: POLYETHYLENE GLYCOL 3350 119 GM POWDER PO (05:12)
[2018-10-20 06:10] LABS: ADD MAN DIFF? NO
[2018-10-20] MEDS: morphine 2 MG INJ IV ×3 (06:12→20:46)
[2018-10-20 06:14] LABS: ABNORMAL IP MESSAGE 1; BASOPHILS % 0.5 % (0.0-2.0); EOSINOPHILS % 0.2 % (0.0-7.0); HEMATOCRIT 30.1 % (37.0-47.0); HEMOGLOBIN 8.7 g/dl (12.0-16.0); LYMPHOCYTES # 0.9 10^3/ul (0.8-2.9); LYMPHOCYTES % 21.6 % (15.0-51.0); MEAN CORPUSCULAR HEMOGLOBIN 24.5 pg (29.0-33.0); MEAN CORPUSCULAR HGB CONC 28.9 g/dl (32.0-37.0); MEAN CORPUSCULAR VOLUME 84.8 fl (82.0-101.0); MEAN PLATELET VOLUME 8.7 fl (7.4-10.4); MONOCYTE # 0.4 10^3/ul (0.3-0.9); MONOCYTES % 8.7 % (0.0-11.0); NEUTROPHIL # 2.8 10^3/ul (1.6-7.5); NEUTROPHILS % 68.8 % (39.0-77.0); PLATELET COUNT 164 10^3/UL (140-415); RED BLOOD COUNT 3.55 10^6/ul (4.20-5.40); RED CELL DISTRIBUTION WIDTH 21.9 % (11.5-14.5)
[2018-10-20 06:23] LABS: POSITIVE DIFF @See below
[2018-10-20 06:33] LABS: INR 1.15; PROTIME 14.8 Sec (11.9-14.9); PT RATIO 1.2
[2018-10-20 06:47] LABS: ANION GAP 5 (5-13); BLOOD UREA NITROGEN 17 mg/dl (7-20); CALCIUM 8.2 mg/dl (8.4-10.2); CARBON DIOXIDE 28 mmol/L (21-31); CHLORIDE 104 mmol/L (97-110); CREATININE 0.67 mg/dl (0.44-1.00); Estimated GFR > 60 mL/min (>60); GLUCOSE 146 mg/dl (70-220); POTASSIUM 4.5 mmol/L (3.5-5.1); SODIUM 137 mmol/L (135-144)
[2018-10-20] MEDS: INSULIN ASPART [NOVOLOG] 3 ML PEN SC ×4 (08:00→20:58)
[2018-10-20] MEDS: FAMOTIDINE 20 MG INJ IV ×2 (08:13→20:45)
[2018-10-20] MEDS: BISACODYL (EC) 5 MG TAB PO (08:13)
[2018-10-20] MEDS: FLUOXETINE 20 MG CAP PO (08:14)
[2018-10-20] MEDS ORDERED: EPHEDrine 25 MG/5 ML SYG IV (19:30)
[2018-10-20] MEDS ORDERED: OXYCODONE/ACETAMINOPHEN (5/325) TAB PO (19:30)
[2018-10-20] MEDS ORDERED: hydrALAzine 20 MG INJ IV (19:30)
[2018-10-20] MEDS ORDERED: HYDROmorphONE 1 MG/5 ML IV SYRINGE IV (19:30)
[2018-10-20] MEDS ORDERED: LABETALOL HCL 20MG INJ IV (19:30)
[2018-10-20] MEDS ORDERED: METOCLOPRAMIDE 10 MG INJ IV (19:30)
[2018-10-20] MEDS ORDERED: ONDANSETRON 4 MG INJ IV (19:30)
[2018-10-20] MEDS ORDERED: FENTAnyl 50 MCG/ML VIAL IV (19:30)
[2018-10-20] MEDS: MESALAMINE (SR) 250 MG CAP PO (20:45)
[2018-10-20 21:28] LABS: INR 1.13; PROTIME 14.6 Sec (11.9-14.9); PT RATIO 1.1
[2018-10-20] MEDS: HEPARIN 25000 UNITS/250 ML 250 ML IV (22:32)
[2018-10-20] MEDS: HEPARIN 1000 UNITS/ML 10 ML INJ IV (22:32)
[2018-10-21] MEDS: morphine 2 MG INJ IV ×7 (00:50→22:57)
[2018-10-21] MEDS: ACCU-CHEK XX (01:37)
[2018-10-21 06:55] LABS: PARTIAL THROMBOPLASTIN TIME 78.2 Sec (23.0-35.0)
[2018-10-21] MEDS: MESALAMINE (SR) 250 MG CAP PO ×4 (08:06→20:13)
[2018-10-21] MEDS: FAMOTIDINE 20 MG INJ IV ×2 (08:06→20:13)
[2018-10-21] MEDS: FLUOXETINE 20 MG CAP PO (08:06)
[2018-10-21] MEDS: INSULIN ASPART [NOVOLOG] 3 ML PEN SC ×4 (08:12→20:11)
[2018-10-21 08:44] LABS: ADD MAN DIFF? NO
[2018-10-21 08:47] LABS: WHITE BLOOD COUNT 4.9 10^3/ul (4.8-10.8)
[2018-10-21 08:47] LABS: ABNORMAL IP MESSAGE 1; BASOPHILS % 0.4 % (0.0-2.0); EOSINOPHILS # 0.1 10^3/ul (0.0-0.5); EOSINOPHILS % 1.8 % (0.0-7.0); HEMOGLOBIN 8.7 g/dl (12.0-16.0); LYMPHOCYTES # 0.8 10^3/ul (0.8-2.9); LYMPHOCYTES % 16.5 % (15.0-51.0); MEAN CORPUSCULAR HEMOGLOBIN 25.3 pg (29.0-33.0); MEAN CORPUSCULAR VOLUME 87.2 fl (82.0-101.0); MEAN PLATELET VOLUME 8.8 fl (7.4-10.4); MONOCYTE # 0.5 10^3/ul (0.3-0.9); MONOCYTES % 9.6 % (0.0-11.0); NEUTROPHIL # 3.5 10^3/ul (1.6-7.5); NEUTROPHILS % 71.5 % (39.0-77.0); PLATELET COUNT 173 10^3/UL (140-415); RED BLOOD COUNT 3.44 10^6/ul (4.20-5.40); RED CELL DISTRIBUTION WIDTH 22.3 % (11.5-14.5)
[2018-10-21 08:50] LABS: POSITIVE DIFF @See below
[2018-10-21 11:36] LABS: PARTIAL THROMBOPLASTIN TIME 78.1 Sec (23.0-35.0)
[2018-10-21] MEDS: APIXABAN 5 MG TABLET PO ×2 (12:15→20:13)
[2018-10-21] MEDS: SPIRONOLACTONE 25 MG TAB PO (17:40)
[2018-10-21] MEDS: FUROSEMIDE 20 MG INJ IV (17:43)
[2018-10-22] MEDS: ACCU-CHEK XX (01:48)
[2018-10-22] MEDS: morphine 2 MG INJ IV ×3 (04:36→17:17)
[2018-10-22] MEDS: FUROSEMIDE 20 MG INJ IV ×2 (05:51→17:17)
[2018-10-22] MEDS: SPIRONOLACTONE 25 MG TAB PO ×2 (05:51→17:18)
[2018-10-22 06:19] LABS: ADD MAN DIFF? NO
[2018-10-22 06:25] LABS: ABNORMAL IP MESSAGE 1; BASOPHILS % 0.8 % (0.0-2.0); EOSINOPHILS # 0.2 10^3/ul (0.0-0.5); EOSINOPHILS % 3.1 % (0.0-7.0); HEMATOCRIT 26.7 % (37.0-47.0); HEMOGLOBIN 8.2 g/dl (12.0-16.0); LYMPHOCYTES # 1.3 10^3/ul (0.8-2.9); LYMPHOCYTES % 26.5 % (15.0-51.0); MEAN CORPUSCULAR HEMOGLOBIN 25.7 pg (29.0-33.0); MEAN CORPUSCULAR HGB CONC 30.7 g/dl (32.0-37.0); MEAN CORPUSCULAR VOLUME 83.7 fl (82.0-101.0); MEAN PLATELET VOLUME 8.6 fl (7.4-10.4); MONOCYTE # 0.6 10^3/ul (0.3-0.9); MONOCYTES % 11.9 % (0.0-11.0); NEUTROPHIL # 2.8 10^3/ul (1.6-7.5); NEUTROPHILS % 57.5 % (39.0-77.0); PLATELET COUNT 190 10^3/UL (140-415); RED BLOOD COUNT 3.19 10^6/ul (4.20-5.40); RED CELL DISTRIBUTION WIDTH 22.5 % (11.5-14.5)
[2018-10-22 06:25] LABS: WHITE BLOOD COUNT 4.8 10^3/ul (4.8-10.8)
[2018-10-22 06:57] LABS: POSITIVE DIFF @See below
[2018-10-22 07:29] LABS: ANION GAP 8 (5-13); BLOOD UREA NITROGEN 18 mg/dl (7-20); CALCIUM 8.2 mg/dl (8.4-10.2); CARBON DIOXIDE 25 mmol/L (21-31); CHLORIDE 102 mmol/L (97-110); CREATININE 0.66 mg/dl (0.44-1.00); Estimated GFR > 60 mL/min (>60); GLUCOSE 139 mg/dl (70-220); PHOSPHORUS 2.7 mg/dl (2.5-4.9); SODIUM 135 mmol/L (135-144)
[2018-10-22] MEDS: INSULIN ASPART [NOVOLOG] 3 ML PEN SC ×4 (07:50→20:54)
[2018-10-22] MEDS: FLUOXETINE 20 MG CAP PO (08:42)
[2018-10-22] MEDS: MESALAMINE (SR) 250 MG CAP PO ×4 (08:42→20:24)
[2018-10-22] MEDS: APIXABAN 5 MG TABLET PO ×2 (08:42→20:24)
[2018-10-22] MEDS: FAMOTIDINE 20 MG INJ IV ×2 (08:42→20:24)
[2018-10-22] MEDS: PROPRANOLOL 10 MG TAB PO (08:43)
[2018-10-23] MEDS: morphine 2 MG INJ IV ×5 (01:34→18:32)
[2018-10-23] MEDS: ACCU-CHEK XX (01:40)
[2018-10-23] MEDS: FUROSEMIDE 20 MG INJ IV ×2 (05:37→17:26)
[2018-10-23] MEDS: SPIRONOLACTONE 25 MG TAB PO ×2 (05:37→17:26)
[2018-10-23 06:05] LABS: ADD MAN DIFF? NO
[2018-10-23 06:12] LABS: ABNORMAL IP MESSAGE 1; BASOPHILS % 0.8 % (0.0-2.0); EOSINOPHILS # 0.2 10^3/ul (0.0-0.5); EOSINOPHILS % 3.8 % (0.0-7.0); HEMATOCRIT 27.7 % (37.0-47.0); HEMOGLOBIN 8.4 g/dl (12.0-16.0); LYMPHOCYTES # 1.1 10^3/ul (0.8-2.9); LYMPHOCYTES % 23.3 % (15.0-51.0); MEAN CORPUSCULAR HEMOGLOBIN 25.3 pg (29.0-33.0); MEAN CORPUSCULAR HGB CONC 30.3 g/dl (32.0-37.0); MEAN CORPUSCULAR VOLUME 83.4 fl (82.0-101.0); MEAN PLATELET VOLUME 8.3 fl (7.4-10.4); MONOCYTE # 0.5 10^3/ul (0.3-0.9); MONOCYTES % 10.8 % (0.0-11.0); NEUTROPHIL # 2.9 10^3/ul (1.6-7.5); NEUTROPHILS % 61.1 % (39.0-77.0); PLATELET COUNT 185 10^3/UL (140-415); RED BLOOD COUNT 3.32 10^6/ul (4.20-5.40); RED CELL DISTRIBUTION WIDTH 22.5 % (11.5-14.5)
[2018-10-23 06:12] LABS: WHITE BLOOD COUNT 4.7 10^3/ul (4.8-10.8)
[2018-10-23 06:30] LABS: POSITIVE DIFF @See below
[2018-10-23 06:31] LABS: INR 1.66; PROTIME 19.7 Sec (11.9-14.9); PT RATIO 1.5
[2018-10-23 06:36] LABS: ANION GAP 8 (5-13); BLOOD UREA NITROGEN 19 mg/dl (7-20); CALCIUM 8.1 mg/dl (8.4-10.2); CARBON DIOXIDE 27 mmol/L (21-31); CHLORIDE 99 mmol/L (97-110); CREATININE 0.71 mg/dl (0.44-1.00); Estimated GFR > 60 mL/min (>60); GLUCOSE 163 mg/dl (70-220); PHOSPHORUS 2.9 mg/dl (2.5-4.9); POTASSIUM 3.9 mmol/L (3.5-5.1); SODIUM 134 mmol/L (135-144)
[2018-10-23] MEDS: FAMOTIDINE 20 MG INJ IV ×2 (08:28→20:24)
[2018-10-23] MEDS: MESALAMINE (SR) 250 MG CAP PO ×4 (08:28→20:24)
[2018-10-23] MEDS: APIXABAN 5 MG TABLET PO ×2 (08:28→20:24)
[2018-10-23] MEDS: FLUOXETINE 20 MG CAP PO (08:28)
[2018-10-23] MEDS: PROPRANOLOL 10 MG TAB PO (08:29)
[2018-10-23] MEDS: HYDROCODONE/APAP (7.5/325) TAB PO (08:33)
[2018-10-23] MEDS: INSULIN ASPART [NOVOLOG] 3 ML PEN SC ×4 (08:48→20:49)
[2018-10-23] MEDS: PETROLATUM 28.35 GM JELLY TOP ×2 (16:04→21:02)
[2018-10-24] MEDS: ACCU-CHEK XX (01:42)
[2018-10-24] MEDS: SPIRONOLACTONE 25 MG TAB PO ×2 (05:26→17:59)
[2018-10-24] MEDS: FUROSEMIDE 20 MG INJ IV ×2 (05:26→17:59)
[2018-10-24] MEDS: morphine 2 MG INJ IV ×3 (05:32→15:50)
[2018-10-24 06:15] LABS: ADD MAN DIFF? NO
[2018-10-24 06:18] LABS: WHITE BLOOD COUNT 4.5 10^3/ul (4.8-10.8)
[2018-10-24 06:18] LABS: ABNORMAL IP MESSAGE 1; BASOPHILS % 0.7 % (0.0-2.0); EOSINOPHILS # 0.2 10^3/ul (0.0-0.5); EOSINOPHILS % 3.4 % (0.0-7.0); HEMATOCRIT 25.2 % (37.0-47.0); HEMOGLOBIN 7.8 g/dl (12.0-16.0); LYMPHOCYTES # 1.1 10^3/ul (0.8-2.9); LYMPHOCYTES % 24.5 % (15.0-51.0); MEAN CORPUSCULAR HEMOGLOBIN 26.2 pg (29.0-33.0); MEAN CORPUSCULAR VOLUME 84.6 fl (82.0-101.0); MEAN PLATELET VOLUME 8.9 fl (7.4-10.4); MONOCYTE # 0.5 10^3/ul (0.3-0.9); NEUTROPHIL # 2.7 10^3/ul (1.6-7.5); NEUTROPHILS % 60.2 % (39.0-77.0); PLATELET COUNT 190 10^3/UL (140-415); RED BLOOD COUNT 2.98 10^6/ul (4.20-5.40); RED CELL DISTRIBUTION WIDTH 22.1 % (11.5-14.5)
[2018-10-24 06:26] LABS: POSITIVE DIFF @See below
[2018-10-24 06:58] LABS: ANION GAP 7 (5-13); BLOOD UREA NITROGEN 23 mg/dl (7-20); CALCIUM 7.8 mg/dl (8.4-10.2); CARBON DIOXIDE 28 mmol/L (21-31); CHLORIDE 99 mmol/L (97-110); Estimated GFR > 60 mL/min (>60); GLUCOSE 129 mg/dl (70-220); MAGNESIUM 1.9 mg/dl (1.7-2.5); PHOSPHORUS 3.1 mg/dl (2.5-4.9); POTASSIUM 4.1 mmol/L (3.5-5.1); SODIUM 134 mmol/L (135-144)
[2018-10-24] MEDS: INSULIN ASPART [NOVOLOG] 3 ML PEN SC ×4 (08:31→21:02)
[2018-10-24] MEDS: PROPRANOLOL 10 MG TAB PO (09:00)
[2018-10-24] MEDS: FAMOTIDINE 20 MG INJ IV ×2 (10:03→21:07)
[2018-10-24] MEDS: APIXABAN 5 MG TABLET PO ×2 (10:04→20:55)
[2018-10-24] MEDS: MESALAMINE (SR) 250 MG CAP PO ×4 (10:04→20:55)
[2018-10-24] MEDS: PETROLATUM 28.35 GM JELLY TOP (10:17)
[2018-10-24] MEDS: PROPOFOL 20 ML (12:27)
[2018-10-24 12:30] LABS: FLD MN% 93.9 %; FLD PMN% 6.1 %; FLD RBC 1000 /uL; FLD WBC 33 /cmm
[2018-10-24] MEDS: FLUOXETINE 20 MG CAP PO (12:38)
[2018-10-24] MEDS: HYDROCODONE/APAP (7.5/325) TAB PO (12:47)
[2018-10-24 12:52] LABS: FLUID LD 192 U/L; FLUID TOTAL PROTEIN < 2.0 g/dl; FLUID TYPE PARACENTESIS FLUID
[2018-10-24] MEDS: LIDOCAINE 1% (MPF) 5 ML VIAL (13:00)
[2018-10-24 13:48] LABS: FLD TYPE PARACENTHESIS
[2018-10-24 13:48] LABS: FLD CLARITY HAZY
[2018-10-24 13:49] LABS: FLD COLOR YELLOW
[2018-10-24] MEDS: OXYCODONE/ACETAMINOPHEN (10/325) TAB PO ×2 (18:05→21:59)
[2018-10-25] MEDS: OXYCODONE/ACETAMINOPHEN (10/325) TAB PO ×5 (01:55→22:34)
[2018-10-25] MEDS: ACCU-CHEK XX (01:56)
[2018-10-25 04:57] LABS: ADD MAN DIFF? NO
[2018-10-25 05:04] LABS: WHITE BLOOD COUNT 3.6 10^3/ul (4.8-10.8)
[2018-10-25 05:04] LABS: ABNORMAL IP MESSAGE 1; BASOPHILS % 0.8 % (0.0-2.0); EOSINOPHILS # 0.2 10^3/ul (0.0-0.5); EOSINOPHILS % 4.2 % (0.0-7.0); HEMATOCRIT 23.1 % (37.0-47.0); HEMOGLOBIN 7.3 g/dl (12.0-16.0); LYMPHOCYTES # 1.2 10^3/ul (0.8-2.9); MEAN CORPUSCULAR HEMOGLOBIN 26.4 pg (29.0-33.0); MEAN CORPUSCULAR HGB CONC 31.6 g/dl (32.0-37.0); MEAN CORPUSCULAR VOLUME 83.4 fl (82.0-101.0); MEAN PLATELET VOLUME 8.4 fl (7.4-10.4); MONOCYTE # 0.5 10^3/ul (0.3-0.9); MONOCYTES % 14.5 % (0.0-11.0); NEUTROPHIL # 1.7 10^3/ul (1.6-7.5); NEUTROPHILS % 48.2 % (39.0-77.0); PLATELET COUNT 156 10^3/UL (140-415); RED BLOOD COUNT 2.77 10^6/ul (4.20-5.40); RED CELL DISTRIBUTION WIDTH 22.5 % (11.5-14.5)
[2018-10-25 05:21] LABS: POSITIVE DIFF @See below
[2018-10-25 05:28] LABS: ANION GAP 5 (5-13); BLOOD UREA NITROGEN 24 mg/dl (7-20); CALCIUM 7.5 mg/dl (8.4-10.2); CARBON DIOXIDE 27 mmol/L (21-31); CHLORIDE 101 mmol/L (97-110); CREATININE 0.75 mg/dl (0.44-1.00); Estimated GFR > 60 mL/min (>60); GLUCOSE 138 mg/dl (70-220); MAGNESIUM 1.8 mg/dl (1.7-2.5); PHOSPHORUS 3.2 mg/dl (2.5-4.9); POTASSIUM 3.6 mmol/L (3.5-5.1); SODIUM 133 mmol/L (135-144)
[2018-10-25] MEDS: SPIRONOLACTONE 25 MG TAB PO ×2 (06:16→17:35)
[2018-10-25] MEDS: FUROSEMIDE 20 MG INJ IV ×2 (06:17→17:35)
[2018-10-25] MEDS: PETROLATUM 5 GM OINT TOP ×2 (09:00→20:34)
[2018-10-25] MEDS: INSULIN ASPART [NOVOLOG] 3 ML PEN SC ×4 (09:40→20:33)
[2018-10-25] MEDS: APIXABAN 5 MG TABLET PO ×2 (09:42→20:27)
[2018-10-25] MEDS: MESALAMINE (SR) 250 MG CAP PO ×5 (09:42→20:27)
[2018-10-25] MEDS: FLUOXETINE 20 MG CAP PO (09:42)
[2018-10-25] MEDS: PROPRANOLOL 10 MG TAB PO (09:43)
[2018-10-25] MEDS: FAMOTIDINE 20 MG INJ IV ×2 (09:48→20:26)
[2018-10-26] MEDS: ACCU-CHEK XX (02:17)
[2018-10-26] MEDS: OXYCODONE/ACETAMINOPHEN (10/325) TAB PO ×4 (02:18→18:02)
[2018-10-26 05:17] LABS: ADD MAN DIFF? NO
[2018-10-26 05:24] LABS: ABNORMAL IP MESSAGE 1; BASOPHILS % 1.2 % (0.0-2.0); EOSINOPHILS # 0.2 10^3/ul (0.0-0.5); EOSINOPHILS % 4.4 % (0.0-7.0); HEMATOCRIT 24.8 % (37.0-47.0); HEMOGLOBIN 7.5 g/dl (12.0-16.0); LYMPHOCYTES # 0.8 10^3/ul (0.8-2.9); LYMPHOCYTES % 24.3 % (15.0-51.0); MEAN CORPUSCULAR HEMOGLOBIN 25.4 pg (29.0-33.0); MEAN CORPUSCULAR HGB CONC 30.2 g/dl (32.0-37.0); MEAN CORPUSCULAR VOLUME 84.1 fl (82.0-101.0); MEAN PLATELET VOLUME 8.5 fl (7.4-10.4); MONOCYTE # 0.5 10^3/ul (0.3-0.9); MONOCYTES % 14.9 % (0.0-11.0); NEUTROPHIL # 1.9 10^3/ul (1.6-7.5); NEUTROPHILS % 54.9 % (39.0-77.0); PLATELET COUNT 180 10^3/UL (140-415); RED BLOOD COUNT 2.95 10^6/ul (4.20-5.40); RED CELL DISTRIBUTION WIDTH 22.5 % (11.5-14.5)
[2018-10-26 05:24] LABS: WHITE BLOOD COUNT 3.4 10^3/ul (4.8-10.8)
[2018-10-26 05:53] LABS: POSITIVE DIFF @See below
[2018-10-26 06:22] LABS: ANION GAP 6 (5-13); BLOOD UREA NITROGEN 23 mg/dl (7-20); CALCIUM 7.7 mg/dl (8.4-10.2); CARBON DIOXIDE 29 mmol/L (21-31); CHLORIDE 98 mmol/L (97-110); CREATININE 0.77 mg/dl (0.44-1.00); Estimated GFR > 60 mL/min (>60); GLUCOSE 129 mg/dl (70-220); MAGNESIUM 1.8 mg/dl (1.7-2.5); PHOSPHORUS 3.7 mg/dl (2.5-4.9); SODIUM 133 mmol/L (135-144)
[2018-10-26] MEDS: SPIRONOLACTONE 25 MG TAB PO ×2 (06:50→18:02)
[2018-10-26] MEDS: FUROSEMIDE 20 MG INJ IV ×2 (06:52→18:30)
[2018-10-26] MEDS: INSULIN ASPART [NOVOLOG] 3 ML PEN SC ×4 (07:50→21:09)
[2018-10-26] MEDS: APIXABAN 5 MG TABLET PO ×3 (09:00→21:14)
[2018-10-26] MEDS: MESALAMINE (SR) 250 MG CAP PO ×4 (09:00→23:03)
[2018-10-26] MEDS: FLUOXETINE 20 MG CAP PO ×2 (09:00→11:31)
[2018-10-26] MEDS: PROPRANOLOL 10 MG TAB PO ×2 (09:00→11:32)
[2018-10-26] MEDS: PETROLATUM 5 GM OINT TOP ×2 (09:00→21:00)
[2018-10-26] MEDS: FAMOTIDINE 20 MG INJ IV ×2 (09:59→21:09)
[2018-10-26 13:45] LABS: IRON 24 ug/dl (35-150)
[2018-10-26 13:46] LABS: LACTATE DEHYDROGENASE 541 IU/L (313-618)
[2018-10-26 13:55] LABS: % IRON SATURATION 11 % SAT (22-52); TOTAL IRON BINDING CAPACITY 227 ug/dl (241-421)
[2018-10-26 14:20] LABS: FERRITIN 34.8 ng/ml (11.1-264.0)
[2018-10-26 14:50] LABS: FOLATE 3.4 ng/ml (2.8-20.0)
[2018-10-26] MEDS: SOD FERRIC GLUC COMPLX 125 MG in SOD CHLORIDE 0.9% 100 ML IVPB (18:31)
[2018-10-27] MEDS: ACCU-CHEK XX (02:00)
[2018-10-27 04:56] LABS: ADD MAN DIFF? NO
[2018-10-27 05:01] LABS: ABNORMAL IP MESSAGE 1; BASOPHILS % 0.9 % (0.0-2.0); EOSINOPHILS # 0.1 10^3/ul (0.0-0.5); EOSINOPHILS % 3.5 % (0.0-7.0); HEMATOCRIT 26.1 % (37.0-47.0); HEMOGLOBIN 8.1 g/dl (12.0-16.0); LYMPHOCYTES # 0.8 10^3/ul (0.8-2.9); LYMPHOCYTES % 24.1 % (15.0-51.0); MEAN CORPUSCULAR HEMOGLOBIN 26.1 pg (29.0-33.0); MEAN CORPUSCULAR VOLUME 84.2 fl (82.0-101.0); MEAN PLATELET VOLUME 8.2 fl (7.4-10.4); MONOCYTE # 0.4 10^3/ul (0.3-0.9); MONOCYTES % 12.2 % (0.0-11.0); PLATELET COUNT 189 10^3/UL (140-415); RED CELL DISTRIBUTION WIDTH 22.4 % (11.5-14.5)
[2018-10-27 05:01] LABS: WHITE BLOOD COUNT 3.5 10^3/ul (4.8-10.8)
[2018-10-27 05:11] LABS: POSITIVE DIFF @See below
[2018-10-27 05:16] LABS: ANION GAP 5 (5-13); BLOOD UREA NITROGEN 20 mg/dl (7-20); CALCIUM 7.7 mg/dl (8.4-10.2); CARBON DIOXIDE 31 mmol/L (21-31); CHLORIDE 98 mmol/L (97-110); CREATININE 0.75 mg/dl (0.44-1.00); Estimated GFR > 60 mL/min (>60); GLUCOSE 163 mg/dl (70-220); POTASSIUM 3.6 mmol/L (3.5-5.1); SODIUM 134 mmol/L (135-144)
[2018-10-27 05:48] LABS: PHOSPHORUS 3.4 mg/dl (2.5-4.9)
[2018-10-27 05:48] LABS: MAGNESIUM 1.8 mg/dl (1.7-2.5)
[2018-10-27] MEDS: SPIRONOLACTONE 25 MG TAB PO ×2 (06:07→17:42)
[2018-10-27] MEDS: MAGNESIUM HYDROXIDE 30ML CUP PO (06:07)
[2018-10-27] MEDS: FUROSEMIDE 20 MG INJ IV (06:07)
[2018-10-27] MEDS: INSULIN ASPART [NOVOLOG] 3 ML PEN SC ×4 (08:47→21:04)
[2018-10-27] MEDS: MESALAMINE (SR) 250 MG CAP PO ×4 (08:47→20:58)
[2018-10-27] MEDS: FAMOTIDINE 20 MG INJ IV (08:47)
[2018-10-27] MEDS: APIXABAN 5 MG TABLET PO ×2 (08:48→20:58)
[2018-10-27] MEDS: FLUOXETINE 20 MG CAP PO (08:48)
[2018-10-27] MEDS: PETROLATUM 5 GM OINT TOP ×2 (08:48→20:58)
[2018-10-27] MEDS: PROPRANOLOL 10 MG TAB PO (08:50)
[2018-10-27] MEDS: OXYCODONE/ACETAMINOPHEN (10/325) TAB PO ×3 (08:58→23:08)
[2018-10-27 13:43] LABS: AMMONIA 27 umol/l (9-30)
[2018-10-27 13:55] LABS: TROPONIN-I < 0.012 ng/ml (0.000-0.120)
[2018-10-28] MEDS: ACCU-CHEK XX ×2 (02:00→21:12)
[2018-10-28 04:37] LABS: PROTEIN, TOTAL 5.5 g/dL (6.1-8.1)
[2018-10-28] MEDS: SPIRONOLACTONE 25 MG TAB PO ×2 (05:11→18:53)
[2018-10-28] MEDS: OXYCODONE/ACETAMINOPHEN (10/325) TAB PO ×4 (05:11→20:25)
[2018-10-28] MEDS: INSULIN ASPART [NOVOLOG] 3 ML PEN SC ×4 (07:50→21:00)
[2018-10-28] MEDS: IOHEXOL 14.3 MG(I)/ML (ADULT) BTL PO (08:16)
[2018-10-28] MEDS: PETROLATUM 5 GM OINT TOP ×2 (08:17→20:26)
[2018-10-28] MEDS: MESALAMINE (SR) 250 MG CAP PO ×4 (08:17→20:25)
[2018-10-28] MEDS: PROPRANOLOL 10 MG TAB PO (08:17)
[2018-10-28] MEDS: FLUOXETINE 20 MG CAP PO (08:17)
[2018-10-28] MEDS: FUROSEMIDE 20 MG TAB PO (08:18)
[2018-10-28] MEDS: APIXABAN 5 MG TABLET PO ×2 (11:51→20:24)
[2018-10-28 13:22] LABS: HAPTOGLOBIN 118 mg/dL (43-212)
[2018-10-28 19:42] LABS: ERYTHROPOIETIN 55.7 mIU/mL (2.6-18.5)
[2018-10-28 23:37] LABS: ALBUMIN 1.8 g/dL (3.8-4.8); ALPHA-1-GLOBULINS 0.4 g/dL (0.2-0.3); ALPHA-2-GLOBULINS 0.6 g/dL (0.5-0.9); BETA 2 GLOBULINS 1.1 g/dL (0.2-0.5); BETA GLOBULINS 0.4 g/dL (0.4-0.6); GAMMA GLOBULINS 1.2 g/dL (0.8-1.7)
[2018-10-29] MEDS: OXYCODONE/ACETAMINOPHEN (10/325) TAB PO ×4 (01:06→17:55)
[2018-10-29 05:19] LABS: ALANINE AMINOTRANSFERASE 17 IU/L (13-69); ALBUMIN 2.4 g/dl (3.3-4.9); ALBUMIN/GLOBULIN RATIO 0.66; ALKALINE PHOSPHATASE 185 IU/L (42-121); ANION GAP 6 (5-13); ASPARTATE AMINO TRANSFERASE 40 IU/L (15-46); BILIRUBIN,INDIRECT 0.4 mg/dl (0-1.1); BILIRUBIN,TOTAL 0.4 mg/dl (0.2-1.3); BLOOD UREA NITROGEN 21 mg/dl (7-20); CARBON DIOXIDE 29 mmol/L (21-31); CHLORIDE 97 mmol/L (97-110); Estimated GFR > 60 mL/min (>60); GLUCOSE 168 mg/dl (70-220); POTASSIUM 3.7 mmol/L (3.5-5.1); SODIUM 132 mmol/L (135-144)
[2018-10-29] MEDS: SPIRONOLACTONE 25 MG TAB PO ×2 (05:50→17:49)
[2018-10-29] MEDS: FLUOXETINE 20 MG CAP PO (08:23)
[2018-10-29] MEDS: APIXABAN 5 MG TABLET PO ×2 (08:23→20:55)
[2018-10-29] MEDS: MESALAMINE (SR) 250 MG CAP PO ×4 (08:24→20:55)
[2018-10-29] MEDS: FUROSEMIDE 20 MG TAB PO (08:24)
[2018-10-29] MEDS: PROPRANOLOL 10 MG TAB PO (08:25)
[2018-10-29] MEDS: INSULIN ASPART [NOVOLOG] 3 ML PEN SC ×4 (08:29→21:01)
[2018-10-29] MEDS: PETROLATUM 5 GM OINT TOP ×2 (08:31→20:56)
[2018-10-30] MEDS: ACCU-CHEK XX (02:00)
[2018-10-30 05:21] LABS: ADD MAN DIFF? NO
[2018-10-30 05:26] LABS: ABNORMAL IP MESSAGE 1; BASOPHILS % 0.9 % (0.0-2.0); EOSINOPHILS # 0.1 10^3/ul (0.0-0.5); EOSINOPHILS % 3.1 % (0.0-7.0); HEMATOCRIT 23.8 % (37.0-47.0); HEMOGLOBIN 7.4 g/dl (12.0-16.0); LYMPHOCYTES # 1.1 10^3/ul (0.8-2.9); LYMPHOCYTES % 23.3 % (15.0-51.0); MEAN CORPUSCULAR HEMOGLOBIN 26.5 pg (29.0-33.0); MEAN CORPUSCULAR HGB CONC 31.1 g/dl (32.0-37.0); MEAN CORPUSCULAR VOLUME 85.3 fl (82.0-101.0); MEAN PLATELET VOLUME 8.2 fl (7.4-10.4); MONOCYTE # 0.5 10^3/ul (0.3-0.9); MONOCYTES % 10.5 % (0.0-11.0); NEUTROPHIL # 2.8 10^3/ul (1.6-7.5); PLATELET COUNT 208 10^3/UL (140-415); RED BLOOD COUNT 2.79 10^6/ul (4.20-5.40)
[2018-10-30 05:26] LABS: WHITE BLOOD COUNT 4.6 10^3/ul (4.8-10.8)
[2018-10-30 05:32] LABS: MAGNESIUM 2.2 mg/dl (1.7-2.5)
[2018-10-30 05:32] LABS: PHOSPHORUS 3.5 mg/dl (2.5-4.9)
[2018-10-30 05:38] LABS: ANION GAP 5 (5-13); BLOOD UREA NITROGEN 21 mg/dl (7-20); CALCIUM 7.9 mg/dl (8.4-10.2); CARBON DIOXIDE 30 mmol/L (21-31); CHLORIDE 97 mmol/L (97-110); CREATININE 0.73 mg/dl (0.44-1.00); Estimated GFR > 60 mL/min (>60); GLUCOSE 141 mg/dl (70-220); SODIUM 132 mmol/L (135-144)
[2018-10-30 05:41] LABS: POSITIVE DIFF @See below
[2018-10-30] MEDS: SPIRONOLACTONE 25 MG TAB PO ×2 (06:09→18:03)
[2018-10-30] MEDS: OXYCODONE/ACETAMINOPHEN (10/325) TAB PO ×2 (06:09→10:53)
[2018-10-30] MEDS: APIXABAN 5 MG TABLET PO ×2 (08:30→21:05)
[2018-10-30] MEDS: PROPRANOLOL 10 MG TAB PO (08:31)
[2018-10-30] MEDS: INSULIN ASPART [NOVOLOG] 3 ML PEN SC ×4 (08:39→21:07)
[2018-10-30] MEDS: MESALAMINE (SR) 250 MG CAP PO ×4 (08:40→21:05)
[2018-10-30] MEDS: FLUOXETINE 20 MG CAP PO (08:40)
[2018-10-30] MEDS: FUROSEMIDE 20 MG TAB PO (08:40)
[2018-10-30] MEDS: PETROLATUM 5 GM OINT TOP ×2 (08:42→21:00)
[2018-10-30 11:52] LABS: HEMATOCRIT 23.6 % (37.0-47.0); HEMOGLOBIN 7.4 g/dl (12.0-16.0)
[2018-10-30] MEDS: LIDOCAINE 1% (MPF) 5 ML VIAL (17:50)
[2018-10-31] MEDS: ACCU-CHEK XX (02:00)
[2018-10-31] MEDS: SPIRONOLACTONE 25 MG TAB PO ×2 (05:47→18:09)
[2018-10-31] MEDS: INSULIN ASPART [NOVOLOG] 3 ML PEN SC ×4 (07:50→20:42)
[2018-10-31] MEDS: OXYCODONE/ACETAMINOPHEN (10/325) TAB PO ×2 (09:25→20:47)
[2018-10-31] MEDS: FLUOXETINE 20 MG CAP PO (09:25)
[2018-10-31] MEDS: APIXABAN 5 MG TABLET PO ×2 (09:25→20:40)
[2018-10-31] MEDS: MAGNESIUM HYDROXIDE 30ML CUP PO (09:34)
[2018-10-31] MEDS: MESALAMINE (SR) 250 MG CAP PO ×4 (10:54→20:39)
[2018-10-31] MEDS: PROPRANOLOL 10 MG TAB PO (10:57)
[2018-10-31] MEDS: FUROSEMIDE 20 MG TAB PO (10:58)
[2018-10-31] MEDS: PETROLATUM 5 GM OINT TOP ×2 (15:36→20:39)
[2018-11-01] MEDS: ACCU-CHEK XX (02:00)
[2018-11-01] MEDS: OXYCODONE/ACETAMINOPHEN (10/325) TAB PO ×3 (03:49→19:26)
[2018-11-01] MEDS: SPIRONOLACTONE 25 MG TAB PO ×2 (06:00→18:56)
[2018-11-01 06:28] LABS: PROTIME 16.3 Sec (11.9-14.9); PT RATIO 1.3
[2018-11-01] MEDS: INSULIN ASPART [NOVOLOG] 3 ML PEN SC ×4 (07:50→20:31)
[2018-11-01] MEDS: MESALAMINE (SR) 250 MG CAP PO ×4 (08:39→20:35)
[2018-11-01] MEDS: PROPRANOLOL 10 MG TAB PO (08:40)
[2018-11-01] MEDS: FUROSEMIDE 20 MG TAB PO (08:40)
[2018-11-01] MEDS: FLUOXETINE 20 MG CAP PO (08:43)
[2018-11-01] MEDS: PETROLATUM 5 GM OINT TOP ×2 (08:43→20:32)
[2018-11-01] MEDS: APIXABAN 5 MG TABLET PO ×2 (09:00→20:35)
[2018-11-01] MEDS: ALBUMIN HUMAN 25% 100 ML IV (13:55)
[2018-11-01 16:06] LABS: ADD MAN DIFF? NO
[2018-11-01 16:08] LABS: WHITE BLOOD COUNT 4.5 10^3/ul (4.8-10.8)
[2018-11-01 16:08] LABS: ABNORMAL IP MESSAGE 1; BASOPHIL # 0.1 10^3/ul (0.0-0.1); BASOPHILS % 1.3 % (0.0-2.0); EOSINOPHILS # 0.3 10^3/ul (0.0-0.5); HEMATOCRIT 22.8 % (37.0-47.0); HEMOGLOBIN 7.1 g/dl (12.0-16.0); LYMPHOCYTES # 1.1 10^3/ul (0.8-2.9); LYMPHOCYTES % 24.9 % (15.0-51.0); MEAN CORPUSCULAR HEMOGLOBIN 27.2 pg (29.0-33.0); MEAN CORPUSCULAR HGB CONC 31.1 g/dl (32.0-37.0); MEAN CORPUSCULAR VOLUME 87.4 fl (82.0-101.0); MEAN PLATELET VOLUME 8.4 fl (7.4-10.4); MONOCYTE # 0.4 10^3/ul (0.3-0.9); MONOCYTES % 8.7 % (0.0-11.0); NEUTROPHIL # 2.6 10^3/ul (1.6-7.5); NEUTROPHILS % 58.9 % (39.0-77.0); PLATELET COUNT 185 10^3/UL (140-415); RED BLOOD COUNT 2.61 10^6/ul (4.20-5.40); RED CELL DISTRIBUTION WIDTH 24.2 % (11.5-14.5)
[2018-11-01 16:10] LABS: POSITIVE DIFF @See below
[2018-11-01 19:37] LABS: HEMATOCRIT 23.2 % (37.0-47.0); HEMOGLOBIN 7.3 g/dl (12.0-16.0)
[2018-11-02] MEDS: ACCU-CHEK XX (02:00)
[2018-11-02] MEDS: SPIRONOLACTONE 25 MG TAB PO ×2 (05:25→18:00)
[2018-11-02] MEDS: FLUOXETINE 20 MG CAP PO (09:02)
[2018-11-02] MEDS: FUROSEMIDE 20 MG TAB PO (09:02)
[2018-11-02] MEDS: PETROLATUM 5 GM OINT TOP ×2 (09:03→20:26)
[2018-11-02] MEDS: PROPRANOLOL 10 MG TAB PO (09:03)
[2018-11-02] MEDS: APIXABAN 5 MG TABLET PO ×2 (09:03→20:26)
[2018-11-02] MEDS: INSULIN ASPART [NOVOLOG] 3 ML PEN SC ×4 (09:09→22:41)
[2018-11-02] MEDS: MESALAMINE (SR) 250 MG CAP PO ×4 (09:10→20:26)
[2018-11-02] MEDS: OXYCODONE/ACETAMINOPHEN (10/325) TAB PO ×2 (12:29→16:47)
[2018-11-02] MEDS: POLYETHYLENE GLYCOL 17 GM PACKET PO (16:01)
[2018-11-03] MEDS: ACCU-CHEK XX (02:00)
[2018-11-03 05:27] LABS: WHITE BLOOD COUNT 3.9 10^3/ul (4.8-10.8)
[2018-11-03 05:27] LABS: ABNORMAL IP MESSAGE 1; ADD MAN DIFF? NO; EOSINOPHILS # 0.2 10^3/ul (0.0-0.5); EOSINOPHILS % 6.2 % (0.0-7.0); HEMATOCRIT 24.6 % (37.0-47.0); HEMOGLOBIN 7.6 g/dl (12.0-16.0); LYMPHOCYTES # 1.1 10^3/ul (0.8-2.9); MEAN CORPUSCULAR HEMOGLOBIN 26.8 pg (29.0-33.0); MEAN CORPUSCULAR HGB CONC 30.9 g/dl (32.0-37.0); MEAN CORPUSCULAR VOLUME 86.6 fl (82.0-101.0); MEAN PLATELET VOLUME 8.4 fl (7.4-10.4); MONOCYTE # 0.4 10^3/ul (0.3-0.9); MONOCYTES % 9.3 % (0.0-11.0); NEUTROPHIL # 2.2 10^3/ul (1.6-7.5); NEUTROPHILS % 56.2 % (39.0-77.0); PLATELET COUNT 211 10^3/UL (140-415); RED BLOOD COUNT 2.84 10^6/ul (4.20-5.40); RED CELL DISTRIBUTION WIDTH 24.4 % (11.5-14.5)
[2018-11-03 05:33] LABS: POSITIVE DIFF @See below
[2018-11-03 05:50] LABS: ANION GAP 4 (5-13); BLOOD UREA NITROGEN 20 mg/dl (7-20); CALCIUM 7.8 mg/dl (8.4-10.2); CARBON DIOXIDE 30 mmol/L (21-31); CHLORIDE 100 mmol/L (97-110); CREATININE 0.63 mg/dl (0.44-1.00); Estimated GFR > 60 mL/min (>60); GLUCOSE 122 mg/dl (70-220); MAGNESIUM 2.1 mg/dl (1.7-2.5); PHOSPHORUS 3.6 mg/dl (2.5-4.9); POTASSIUM 4.5 mmol/L (3.5-5.1); SODIUM 134 mmol/L (135-144)
[2018-11-03] MEDS: SPIRONOLACTONE 25 MG TAB PO ×2 (06:12→17:34)
[2018-11-03] MEDS: INSULIN ASPART [NOVOLOG] 3 ML PEN SC ×4 (08:48→21:00)
[2018-11-03] MEDS: FLUOXETINE 20 MG CAP PO (08:49)
[2018-11-03] MEDS: POLYETHYLENE GLYCOL 17 GM PACKET PO (08:49)
[2018-11-03] MEDS: MESALAMINE (SR) 250 MG CAP PO ×4 (08:49→22:03)
[2018-11-03] MEDS: APIXABAN 5 MG TABLET PO ×2 (08:49→22:02)
[2018-11-03] MEDS: FUROSEMIDE 20 MG TAB PO (08:50)
[2018-11-03] MEDS: PROPRANOLOL 10 MG TAB PO (08:50)
[2018-11-03] MEDS: PETROLATUM 5 GM OINT TOP ×2 (08:52→22:02)
[2018-11-03] MEDS: OXYCODONE/ACETAMINOPHEN (10/325) TAB PO ×3 (14:22→22:23)
[2018-11-03] MEDS: DOCUSATE SODIUM 100 MG CAP PO (16:47)
[2018-11-04] MEDS: ACCU-CHEK XX (02:00)
[2018-11-04] MEDS: OXYCODONE/ACETAMINOPHEN (10/325) TAB PO ×4 (02:31→17:04)
[2018-11-04 05:00] LABS: ADD MAN DIFF? NO
[2018-11-04 05:05] LABS: WHITE BLOOD COUNT 4.1 10^3/ul (4.8-10.8)
[2018-11-04 05:05] LABS: ABNORMAL IP MESSAGE 1; EOSINOPHILS # 0.3 10^3/ul (0.0-0.5); EOSINOPHILS % 7.9 % (0.0-7.0); HEMATOCRIT 23.4 % (37.0-47.0); HEMOGLOBIN 7.4 g/dl (12.0-16.0); LYMPHOCYTES # 1.3 10^3/ul (0.8-2.9); LYMPHOCYTES % 32.5 % (15.0-51.0); MEAN CORPUSCULAR HEMOGLOBIN 27.4 pg (29.0-33.0); MEAN CORPUSCULAR HGB CONC 31.6 g/dl (32.0-37.0); MEAN CORPUSCULAR VOLUME 86.7 fl (82.0-101.0); MEAN PLATELET VOLUME 8.3 fl (7.4-10.4); MONOCYTE # 0.5 10^3/ul (0.3-0.9); MONOCYTES % 11.1 % (0.0-11.0); NEUTROPHIL # 1.9 10^3/ul (1.6-7.5); NEUTROPHILS % 47.3 % (39.0-77.0); PLATELET COUNT 205 10^3/UL (140-415); RED CELL DISTRIBUTION WIDTH 23.8 % (11.5-14.5)
[2018-11-04 05:08] LABS: POSITIVE DIFF @See below
[2018-11-04 05:45] LABS: ANION GAP 4 (5-13); BLOOD UREA NITROGEN 21 mg/dl (7-20); CALCIUM 7.7 mg/dl (8.4-10.2); CARBON DIOXIDE 28 mmol/L (21-31); CHLORIDE 101 mmol/L (97-110); CREATININE 0.61 mg/dl (0.44-1.00); Estimated GFR > 60 mL/min (>60); GLUCOSE 114 mg/dl (70-220); PHOSPHORUS 3.4 mg/dl (2.5-4.9); SODIUM 133 mmol/L (135-144)
[2018-11-04] MEDS: SPIRONOLACTONE 25 MG TAB PO ×2 (06:55→17:57)
[2018-11-04] MEDS: MESALAMINE (SR) 250 MG CAP PO ×3 (09:06→17:05)
[2018-11-04] MEDS: PROPRANOLOL 10 MG TAB PO (09:06)
[2018-11-04] MEDS: FLUOXETINE 20 MG CAP PO (09:06)
[2018-11-04] MEDS: APIXABAN 5 MG TABLET PO (09:07)
[2018-11-04] MEDS: PETROLATUM 5 GM OINT TOP (09:07)
[2018-11-04] MEDS: FUROSEMIDE 20 MG TAB PO (09:07)
[2018-11-04] MEDS: INSULIN ASPART [NOVOLOG] 3 ML PEN SC ×3 (09:11→17:55)
[2018-11-04] MEDS: POLYETHYLENE GLYCOL 17 GM PACKET PO (09:13)
== END 2018-11-04 18:30 | DRG 167 ==
LOC: MS1 10-24 06:10 → E/R 12:16 → 6WM 13:40
PROC: 06H03DZ Insertion of Intraluminal Device into Inferior Vena Cava, Percutaneous Approach (ICD-10-PCS; principal; 2018-10-14 10:01)
PROC: 0DB68ZX Excision of Stomach, Via Natural or Artificial Opening Endoscopic, Diagnostic (ICD-10-PCS; 2018-10-14 10:01)
PROC: 0DBF8ZX Excision of Right Large Intestine, Via Natural or Artificial Opening Endoscopic, Diagnostic (ICD-10-PCS; 2018-10-14 10:01)
PROC: 0DBN8ZX Excision of Sigmoid Colon, Via Natural or Artificial Opening Endoscopic, Diagnostic (ICD-10-PCS; 2018-10-14 10:01)
PROC: 0DBG8ZX Excision of Left Large Intestine, Via Natural or Artificial Opening Endoscopic, Diagnostic (ICD-10-PCS; 2018-10-14 10:01)
PROC: 0W9G3ZX Drainage of Peritoneal Cavity, Percutaneous Approach, Diagnostic (ICD-10-PCS; 2018-10-14 10:01)
PROC: 0W9G3ZX Drainage of Peritoneal Cavity, Percutaneous Approach, Diagnostic (ICD-10-PCS; 2018-10-14 10:01)
PROC: 0W9G3ZZ Drainage of Peritoneal Cavity, Percutaneous Approach (ICD-10-PCS; 2018-10-14 10:01)
PROC: 0W9G3ZZ Drainage of Peritoneal Cavity, Percutaneous Approach (ICD-10-PCS; 2018-10-14 10:01)
PROC: 30233N1 Transfusion of Nonautologous Red Blood Cells into Peripheral Vein, Percutaneous Approach (ICD-10-PCS; 2018-10-14 10:01)
DX: I26.99 Other pulmonary embolism without acute cor pulmonale (principal); R18.8 Other ascites; N17.9 Acute kidney failure, unspecified; I85.10 Secondary esophageal varices without bleeding; K51.50 Left sided colitis without complications; F33.9 Major depressive disorder, recurrent, unspecified; I82.412 Acute embolism and thrombosis of left femoral vein; I82.442 Acute embolism and thrombosis of left tibial vein; K74.60 Unspecified cirrhosis of liver; E11.8 Type 2 diabetes mellitus with unspecified complications; D69.6 Thrombocytopenia, unspecified; I50.9 Heart failure, unspecified; K76.0 Fatty (change of) liver, not elsewhere classified; I11.0 Hypertensive heart disease with heart failure; K62.5 Hemorrhage of anus and rectum; D64.9 Anemia, unspecified; J44.9 Chronic obstructive pulmonary disease, unspecified; F41.9 Anxiety disorder, unspecified; K64.8 Other hemorrhoids; K29.70 Gastritis, unspecified, without bleeding
CPT/HCPCS: 36415; 36430; 71045; 71275; 75940; 76705; 80048; 80053; 80061; 80307; 82042; 82105; 82140; 82150; 82550; 82553; 82607; 82668; 82728; 82746; 82945; 82962; 83010; 83036; 83540; 83615; 83735; 83880; 83986; 84100; 84155; 84157; 84165; 84439; 84443; 84484; 85014; 85018; 85025; 85610; 85730; 86038; 86255; 86704; 86706; 86803; 86850; 86900; 86901; 86920; 87070; 87102; 87116; 87340; 88104; 88305; 88312; 89051; 93005; 93306; 93970; 97110; 97116; 97162; 97530; 99285-25

== ENCOUNTER 2018-11-05 14:21 | Emergency (ER) | payer OTHER, MEDICAID ==
[2018-11-05] MEDS: oxyCODONE (CR) 10 MG TAB [oxyCONTIN] PO ×2 (15:46→19:37)
== END 2018-11-05 19:40 | disposition home or self-care (01) ==
LOC: E/R 14:21
DX: S06.0X1A Concussion with loss of consciousness of 30 minutes or less, initial encounter (principal); J44.9 Chronic obstructive pulmonary disease, unspecified; I10 Essential (primary) hypertension; S13.4XXA Sprain of ligaments of cervical spine, initial encounter; W01.0XXA Fall on same level from slipping, tripping and stumbling without subsequent striking against object, initial encounter; Y92.9 Unspecified place or not applicable
CPT/HCPCS: 70450; 72125; 72131; 99284-25

== ENCOUNTER 2018-11-19 13:21 | Emergency (ER) | payer OTHER ==
[2018-11-19 13:58] LABS: ADD MAN DIFF? NO
[2018-11-19 14:02] LABS: ABNORMAL IP MESSAGE 1; EOSINOPHILS # 0.1 10^3/ul (0.0-0.5); EOSINOPHILS % 2.5 % (0.0-7.0); HEMATOCRIT 28.7 % (37.0-47.0); HEMOGLOBIN 8.6 g/dl (12.0-16.0); LYMPHOCYTES # 0.7 10^3/ul (0.8-2.9); LYMPHOCYTES % 16.9 % (15.0-51.0); MEAN CORPUSCULAR HEMOGLOBIN 27.9 pg (29.0-33.0); MEAN CORPUSCULAR VOLUME 93.2 fl (82.0-101.0); MEAN PLATELET VOLUME 8.2 fl (7.4-10.4); MONOCYTE # 0.5 10^3/ul (0.3-0.9); MONOCYTES % 11.8 % (0.0-11.0); NEUTROPHIL # 2.7 10^3/ul (1.6-7.5); NEUTROPHILS % 67.3 % (39.0-77.0); PLATELET COUNT 211 10^3/UL (140-415); RED BLOOD COUNT 3.08 10^6/ul (4.20-5.40); RED CELL DISTRIBUTION WIDTH 22.2 % (11.5-14.5)
[2018-11-19 14:05] LABS: POSITIVE DIFF @See below
[2018-11-19 14:20] LABS: ALANINE AMINOTRANSFERASE 23 IU/L (13-69); ALBUMIN 2.6 g/dl (3.3-4.9); ALKALINE PHOSPHATASE 218 IU/L (42-121); ANION GAP 5 (5-13); ASPARTATE AMINO TRANSFERASE 34 IU/L (15-46); BILIRUBIN,INDIRECT 0.5 mg/dl (0-1.1); BILIRUBIN,TOTAL 0.5 mg/dl (0.2-1.3); BLOOD UREA NITROGEN 16 mg/dl (7-20); CARBON DIOXIDE 26 mmol/L (21-31); CHLORIDE 101 mmol/L (97-110); CREATININE 0.67 mg/dl (0.44-1.00); Estimated GFR > 60 mL/min (>60); GLUCOSE 133 mg/dl (70-220); POTASSIUM 3.9 mmol/L (3.5-5.1); SODIUM 132 mmol/L (135-144); TOTAL PROTEIN 6.3 g/dl (6.1-8.1)
[2018-11-19 14:21] LABS: INR 1.52; PROTIME 18.4 Sec (11.9-14.9); PT RATIO 1.4
[2018-11-19 14:22] LABS: PARTIAL THROMBOPLASTIN TIME 40.3 Sec (23.0-35.0)
[2018-11-19] MEDS: LIDOCAINE 1% (MPF) 5 ML VIAL (16:30)
== END 2018-11-19 18:30 | disposition home or self-care (01) ==
LOC: E/R 13:21
DX: R18.8 Other ascites (principal); I10 Essential (primary) hypertension; E11.9 Type 2 diabetes mellitus without complications; J44.9 Chronic obstructive pulmonary disease, unspecified; R10.9 Unspecified abdominal pain; Z79.4 Long term (current) use of insulin
CPT/HCPCS: 80053; 85025; 85610; 85730; 99285-25

== ENCOUNTER 2018-11-24 11:44 | Emergency (ER) | payer OTHER ==
[2018-11-24] MEDS: LIDOCAINE 1% (MPF) 5 ML VIAL (14:28)
== END 2018-11-24 17:16 | disposition home or self-care (01) ==
LOC: E/R 11:44
DX: R18.8 Other ascites (principal); E11.9 Type 2 diabetes mellitus without complications; I10 Essential (primary) hypertension; J44.9 Chronic obstructive pulmonary disease, unspecified; Z79.01 Long term (current) use of anticoagulants; Z79.4 Long term (current) use of insulin
CPT/HCPCS: 49083; 99285-25

== ENCOUNTER 2018-11-26 14:01 | Emergency (ER) | payer OTHER ==
[2018-11-26] MEDS: LIDOCAINE 1% (MDV) 20 ML INJ (16:49)
[2018-11-26] MEDS: LIDOCAINE 1% (MPF) 5 ML VIAL (17:21)
[2018-11-26] MEDS: ALBUMIN HUMAN 25% 100 ML IV (18:12)
== END 2018-11-26 20:55 | disposition home or self-care (01) ==
LOC: E/R 14:01
DX: R18.8 Other ascites (principal); E11.9 Type 2 diabetes mellitus without complications; J44.9 Chronic obstructive pulmonary disease, unspecified; I10 Essential (primary) hypertension; Y84.4 Aspiration of fluid as the cause of abnormal reaction of the patient, or of later complication, without mention of misadventure at the time of the procedure; Z79.4 Long term (current) use of insulin; Z79.01 Long term (current) use of anticoagulants
CPT/HCPCS: 49083; 96374; 99285-25

== ENCOUNTER 2018-11-30 15:01 | Emergency (ER) | payer SELFPAY, OTHER ==
[2018-11-30] MEDS: LIDOCAINE 1% (MPF) 5 ML VIAL (16:32)
== END 2018-11-30 18:16 | disposition home or self-care (01) ==
LOC: E/R 15:01
DX: R18.8 Other ascites (principal); R10.84 Generalized abdominal pain; I10 Essential (primary) hypertension; E11.9 Type 2 diabetes mellitus without complications; J44.9 Chronic obstructive pulmonary disease, unspecified; Z79.4 Long term (current) use of insulin
CPT/HCPCS: 99285; 99285-25

== ENCOUNTER 2018-12-08 15:40 | Emergency (ER) | payer OTHER | END 2018-12-08 17:19 | disposition home or self-care (01) | LOC: E/R 15:40 | DX: R18.8 Other ascites (principal); I10 Essential (primary) hypertension; E11.9 Type 2 diabetes mellitus without complications; J44.9 Chronic obstructive pulmonary disease, unspecified; Z79.01 Long term (current) use of anticoagulants; Z79.4 Long term (current) use of insulin | CPT/HCPCS: 99282; Z7502 ==

== ENCOUNTER 2018-12-10 09:45 | Emergency (ER) | payer OTHER ==
[2018-12-10 10:39] LABS: ADD MAN DIFF? NO
[2018-12-10 10:48] LABS: BASOPHILS % 0.7 % (0.0-2.0); EOSINOPHILS # 0.3 10^3/ul (0.0-0.5); EOSINOPHILS % 6.4 % (0.0-7.0); HEMATOCRIT 30.6 % (37.0-47.0); HEMOGLOBIN 9.4 g/dl (12.0-16.0); LYMPHOCYTES # 0.9 10^3/ul (0.8-2.9); LYMPHOCYTES % 21.6 % (15.0-51.0); MEAN CORPUSCULAR HEMOGLOBIN 30.9 pg (29.0-33.0); MEAN CORPUSCULAR HGB CONC 30.7 g/dl (32.0-37.0); MEAN CORPUSCULAR VOLUME 100.7 fl (82.0-101.0); MEAN PLATELET VOLUME 8.1 fl (7.4-10.4); MONOCYTE # 0.6 10^3/ul (0.3-0.9); MONOCYTES % 13.5 % (0.0-11.0); NEUTROPHIL # 2.4 10^3/ul (1.6-7.5); NEUTROPHILS % 57.8 % (39.0-77.0); PLATELET COUNT 196 10^3/UL (140-415); RED BLOOD COUNT 3.04 10^6/ul (4.20-5.40)
[2018-12-10 10:48] LABS: WHITE BLOOD COUNT 4.2 10^3/ul (4.8-10.8)
[2018-12-10 11:05] LABS: ALANINE AMINOTRANSFERASE 34 IU/L (13-69); ALBUMIN 2.7 g/dl (3.3-4.9); ALBUMIN/GLOBULIN RATIO 0.71; ALKALINE PHOSPHATASE 225 IU/L (42-121); ANION GAP 5 (5-13); ASPARTATE AMINO TRANSFERASE 44 IU/L (15-46); BILIRUBIN,INDIRECT 0.5 mg/dl (0-1.1); BILIRUBIN,TOTAL 0.5 mg/dl (0.2-1.3); BLOOD UREA NITROGEN 24 mg/dl (7-20); CALCIUM 8.3 mg/dl (8.4-10.2); CARBON DIOXIDE 26 mmol/L (21-31); CHLORIDE 101 mmol/L (97-110); CREATININE 0.64 mg/dl (0.44-1.00); Estimated GFR > 60 mL/min (>60); GLUCOSE 131 mg/dl (70-220); POTASSIUM 3.9 mmol/L (3.5-5.1); SODIUM 132 mmol/L (135-144); TOTAL PROTEIN 6.5 g/dl (6.1-8.1)
[2018-12-10 11:13] LABS: INR 1.13; PROTIME 14.6 Sec (11.9-14.9); PT RATIO 1.1
[2018-12-10 11:14] LABS: PARTIAL THROMBOPLASTIN TIME 37.9 Sec (23.0-35.0)
[2018-12-10] MEDS: SOD CHLORIDE 0.9% 100 ML (13:59)
[2018-12-10] MEDS: IOHEXOL 300MG/ML 150 ML BTL (13:59)
[2018-12-10] MEDS: traMADol 50 MG TAB PO (15:24)
== END 2018-12-10 19:20 | disposition home or self-care (01) ==
LOC: E/R 09:45
DX: K74.60 Unspecified cirrhosis of liver (principal); I10 Essential (primary) hypertension; J45.909 Unspecified asthma, uncomplicated
CPT/HCPCS: 74177; 76705; 80053; 82962; 85025; 85610; 85730; 99284-25

== ENCOUNTER 2018-12-16 03:30 | Emergency (ER) | payer OTHER ==
[2018-12-16 03:54] LABS: ADD MAN DIFF? NO
[2018-12-16 03:58] LABS: BASOPHILS % 0.7 % (0.0-2.0); EOSINOPHILS # 0.1 10^3/ul (0.0-0.5); EOSINOPHILS % 3.5 % (0.0-7.0); HEMOGLOBIN 8.9 g/dl (12.0-16.0); LYMPHOCYTES # 0.7 10^3/ul (0.8-2.9); LYMPHOCYTES % 17.4 % (15.0-51.0); MEAN CORPUSCULAR HEMOGLOBIN 31.6 pg (29.0-33.0); MEAN CORPUSCULAR HGB CONC 31.8 g/dl (32.0-37.0); MEAN CORPUSCULAR VOLUME 99.3 fl (82.0-101.0); MEAN PLATELET VOLUME 8.1 fl (7.4-10.4); MONOCYTE # 0.5 10^3/ul (0.3-0.9); MONOCYTES % 11.9 % (0.0-11.0); NEUTROPHIL # 2.7 10^3/ul (1.6-7.5); NEUTROPHILS % 66.3 % (39.0-77.0); PLATELET COUNT 184 10^3/UL (140-415); RED BLOOD COUNT 2.82 10^6/ul (4.20-5.40); RED CELL DISTRIBUTION WIDTH 18.6 % (11.5-14.5)
[2018-12-16 04:15] LABS: ALANINE AMINOTRANSFERASE 25 IU/L (13-69); ALBUMIN 2.5 g/dl (3.3-4.9); ALBUMIN/GLOBULIN RATIO 0.67; ALKALINE PHOSPHATASE 269 IU/L (42-121); ANION GAP 4 (5-13); ASPARTATE AMINO TRANSFERASE 40 IU/L (15-46); BILIRUBIN,INDIRECT 0.4 mg/dl (0-1.1); BILIRUBIN,TOTAL 0.4 mg/dl (0.2-1.3); BLOOD UREA NITROGEN 23 mg/dl (7-20); CALCIUM 7.9 mg/dl (8.4-10.2); CARBON DIOXIDE 25 mmol/L (21-31); CHLORIDE 102 mmol/L (97-110); CREATININE 0.58 mg/dl (0.44-1.00); Estimated GFR > 60 mL/min (>60); GLUCOSE 127 mg/dl (70-220); LIPASE 104 U/L (23-300); POTASSIUM 4.5 mmol/L (3.5-5.1); SODIUM 131 mmol/L (135-144); TOTAL PROTEIN 6.2 g/dl (6.1-8.1)
[2018-12-16 04:18] LABS: INR 1.19; PROTIME 15.2 Sec (11.9-14.9); PT RATIO 1.2
[2018-12-16] MEDS ORDERED: OXYCODONE/ACETAMINOPHEN (10/325) TAB PO (05:00)
[2018-12-16] MEDS ORDERED: ONDANSETRON 4 MG INJ IV (05:00)
[2018-12-16] MEDS ORDERED: NACL 0.9% 3 ML SYG IV (05:00)
[2018-12-16] MEDS: BUMETANIDE 1 MG INJ IV (05:00)
[2018-12-16] MEDS ORDERED: ACETAMINOPHEN 325 MG TAB PO ×3 (05:00)
[2018-12-16] MEDS: DOCUSATE SODIUM 100 MG CAP PO (07:00)
[2018-12-16] MEDS: MAGNESIUM HYDROXIDE 30ML CUP PO (07:01)
[2018-12-16] MEDS ORDERED: FUROSEMIDE 20 MG TAB PO (09:00)
[2018-12-16] MEDS ORDERED: POLYETHYLENE GLYCOL 17 GM PACKET PO (09:00)
[2018-12-16] MEDS: LIDOCAINE 1% (MPF) 5 ML VIAL (09:50)
[2018-12-16] MEDS: FERROUS SULFATE (EC) 325 MG TAB PO (10:19)
[2018-12-16] MEDS: SPIRONOLACTONE 25 MG TAB PO (10:19)
[2018-12-16] MEDS: FLUOXETINE 20 MG CAP PO (10:19)
[2018-12-16] MEDS: PROPRANOLOL 10 MG TAB PO (10:20)
[2018-12-16] MEDS: MESALAMINE (SR) 250 MG CAP PO (10:20)
[2018-12-16] MEDS: morphine 2 MG INJ IV (10:34)
[2018-12-16] MEDS: ONDANSETRON 4 MG INJ IV (10:34)
[2018-12-16] MEDS ORDERED: EPOETIN ALFA-EPBX (NON-ESRD) 4,000 UNIT/ML VIAL SC (17:00)
== END 2018-12-16 10:56 | disposition home or self-care (01) ==
LOC: E/R 03:30
DX: R18.8 Other ascites (principal); I10 Essential (primary) hypertension; J44.9 Chronic obstructive pulmonary disease, unspecified; E11.9 Type 2 diabetes mellitus without complications; Z79.4 Long term (current) use of insulin
CPT/HCPCS: 36415; 80053; 83690; 85025; 85610; 85730; 96374; 96375; 99285-25

== ENCOUNTER 2019-01-11 15:06 | Emergency (ER) | payer OTHER ==
[2019-01-11] MEDS: LIDOCAINE 1% (MPF) 5 ML VIAL (16:40)
[2019-01-11 16:56] LABS: ADD MAN DIFF? NO
[2019-01-11 16:59] LABS: BASOPHILS % 0.5 % (0.0-2.0); EOSINOPHILS # 0.1 10^3/ul (0.0-0.5); EOSINOPHILS % 2.1 % (0.0-7.0); HEMATOCRIT 28.9 % (37.0-47.0); LYMPHOCYTES # 0.7 10^3/ul (0.8-2.9); LYMPHOCYTES % 18.4 % (15.0-51.0); MEAN CORPUSCULAR HEMOGLOBIN 32.4 pg (29.0-33.0); MEAN CORPUSCULAR HGB CONC 31.1 g/dl (32.0-37.0); MEAN PLATELET VOLUME 8.6 fl (7.4-10.4); MONOCYTE # 0.6 10^3/ul (0.3-0.9); MONOCYTES % 14.3 % (0.0-11.0); NEUTROPHIL # 2.5 10^3/ul (1.6-7.5); NEUTROPHILS % 64.4 % (39.0-77.0); PLATELET COUNT 174 10^3/UL (140-415); RED BLOOD COUNT 2.78 10^6/ul (4.20-5.40); RED CELL DISTRIBUTION WIDTH 15.8 % (11.5-14.5)
[2019-01-11 16:59] LABS: WHITE BLOOD COUNT 3.9 10^3/ul (4.8-10.8)
[2019-01-11] MEDS: HYDROCODONE/APAP (5/325) TAB PO (17:19)
[2019-01-11] MEDS: ONDANSETRON (ODT) 4 MG TAB ODT (17:19)
[2019-01-11 17:23] LABS: ALANINE AMINOTRANSFERASE 33 IU/L (13-69); ALBUMIN 2.5 g/dl (3.3-4.9); ALBUMIN/GLOBULIN RATIO 0.69; ALKALINE PHOSPHATASE 207 IU/L (42-121); ANION GAP 3 (5-13); ASPARTATE AMINO TRANSFERASE 41 IU/L (15-46); BILIRUBIN,INDIRECT 0.4 mg/dl (0-1.1); BILIRUBIN,TOTAL 0.4 mg/dl (0.2-1.3); BLOOD UREA NITROGEN 25 mg/dl (7-20); CALCIUM 7.8 mg/dl (8.4-10.2); CARBON DIOXIDE 25 mmol/L (21-31); CHLORIDE 103 mmol/L (97-110); CREATININE 0.76 mg/dl (0.44-1.00); Estimated GFR > 60 mL/min (>60); GLUCOSE 145 mg/dl (70-220); LIPASE 63 U/L (23-300); POTASSIUM 4.2 mmol/L (3.5-5.1); SODIUM 131 mmol/L (135-144); TOTAL PROTEIN 6.1 g/dl (6.1-8.1)
[2019-01-11 17:31] LABS: B-TYPE NATRIURETIC PEPTIDE 379 PG/ML (0-125)
== END 2019-01-11 21:57 | disposition home or self-care (01) ==
LOC: E/R 15:06
DX: R18.8 Other ascites (principal); J44.9 Chronic obstructive pulmonary disease, unspecified; E11.9 Type 2 diabetes mellitus without complications; I10 Essential (primary) hypertension; D64.9 Anemia, unspecified; D72.819 Decreased white blood cell count, unspecified; Z79.01 Long term (current) use of anticoagulants; Z79.4 Long term (current) use of insulin
CPT/HCPCS: 36415; 71045; 80053; 83690; 83880; 85025; 99285-25

== ENCOUNTER 2019-01-22 09:27 | Emergency (ER) | payer OTHER ==
[2019-01-22] MEDS: LIDOCAINE 1% (MPF) 5 ML VIAL (12:16)
[2019-01-22] MEDS: HYDROCODONE/APAP (5/325) TAB PO (13:06)
== END 2019-01-22 13:33 | disposition home or self-care (01) ==
LOC: E/R 09:27
DX: R18.8 Other ascites (principal); I10 Essential (primary) hypertension; J44.9 Chronic obstructive pulmonary disease, unspecified; Z79.01 Long term (current) use of anticoagulants; Z79.4 Long term (current) use of insulin
CPT/HCPCS: 49083; 99285-25